=== PATIENT | female | born 1970 | race Caucasian/White ===

== ENCOUNTER 2023-07-20 15:14 | Outpatient (AMB) | payer BC, SELFPAY ==
--- NOTE | 2023-07-20 14:15 | MHC.PC.OV ---
Vital Signs 07/20/23 15:22 Height 5 ft 7.13 in Weight 200 lb 2 oz BMI 31.2 BP 118/78 Blood Pressure Location Rt brachial Position Sitting Respiration 14 Pulse 81 Pulse Source Palpation Temp 98.3 F Temp Source Oral Pulse Oximetry (%) 95 Oxygen Delivery Method Room Air Intake Visit Reasons: Establish Care transfer [facility] Intake Note: New patient visit. Manager Testing Required: No Allergies sulfamethoxazole [From Bactrim] Allergy (Mild, Verified 07/20/23 15:19) Hives trimethoprim [From Bactrim] Allergy (Mild, Verified 07/20/23 15:19) Hives Tobacco use date assessed: 07/20/23 Dental Screening Dental Screen Date: 07/20/23 Did you have a dental visit in the last 12 months?: Yes Did you have a dental problem in the last 6 months where you did not have access to dental care?: No Was dental information given to patient?: Patient has dentist HPI HPI Comments History of Present Illness Details The patient is a 53 year old female with a past medical history of anxiety, depression, seasonal affective disorder, headaches presnting for follow up BH: Depression with anxiety. On lexapro 20mg daily. Continues to have low energy, fatigue at times but overall doing ok Mammo is UTD Colonoscopy is UTD [facility] Medical History (Updated 07/20/23 @ 15:42 by Kristy Cherry MD) Obesity, Class I, BMI 30-34.9 Headache Depression Anxiety Family History (Updated 07/20/23 @ 17:04 by Annika Forde CMA) Mother HTN (hypertension) Hypercholesteremia Diabetes Cardiovascular disease Thyroid disorder Breast cancer Other Substance use Social History (Updated 07/20/23 @ 15:21 by Annika Forde CMA) Housing: House Patient Tobacco Use Status: Former Tobacco user Cigarette Packs Per Day: 0.5 Years Smoked: 3 e-Cigarette/Vaping Use: Never Used Second Hand Smoke Exposure: Yes service: Yes Current occupational status: employed 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 1. Little interest or pleasure in doing things: more than half the days 2. Feeling down, depressed, or hopeless: several days 3. Trouble falling or staying asleep, or sleeping too much: nearly every day 4. Feeling tired or having little energy: several days 5. Poor appetite or overeating: several days 6. Feeling bad about yourself - or that you are a failure or have let yourself or your family down: not at all 7. Trouble concentrating on things, such as reading the newspaper or watching television: not at all 8. Moving or speaking so slowly that other people could have noticed. Or the opposite - being so fidgety or restless that you have been moving around a lot more than usual: not at all 9. Thoughts that you would be better off or of hurting yourself in some way: not at all Total score: 8 Depression Screening Interpretation: Positive Depression Screening Done: Yes 31588 - PHQ-9 Billing: Yes Source: Developed by Drs. Bryan Miller, Elda Soriano, Reuben Salcido and colleagues, with an educational phoebe from [email or web address]. Thrive Questionnaire Date Thrive assessed: 07/20/23 I am a: Patient What is your living situation today?: I have a steady place to live Within the past 12 months, did the food you bought not last and you didn't have the money to get more?: Never true Within the past 12 months, did you worry whether your food would run out before you got money to buy more?: Never true Do you have trouble paying for medicines?: No Do you have trouble getting transportation to medical appointments?: No Do you have trouble paying your heating and electricity bill?: No Do you have trouble taking care of your child, family member or friend?: No Do you have trouble with day-to-day activities such as bathing, preparing meals, shopping, managing finances, etc.?: No Are you currently unemployed and looking for a job?: No Are you interested in more education?: No Please select the resources that you would like help with: None Currently or been in a relationship where the following occur: no concerns reported THRIVE Score: 0 AUDIT C Alcohol Use Questionnaire (AUDIT-C) 1. How often do you have a drink containing alcohol?: 2-4 times a month 2. How many drinks containing alcohol do you have on a typical day when you are drinking?: 1 or 2 3. How often do you have six or more drinks on one occasion?: Never Total Score: 2 LUISANA-7 AMB Questionnaire LUISANA-7 Date LUISANA - 7 assessed: 07/20/23 Feeling nervous, anxious, or on edge: 1 = Several days Not being able to stop or control worryin = Not at all Worrying too much about different things: 0 = Not at all Trouble relaxin = Several days Being so restless that it is hard to sit still: 1 = Several days Becoming easily annoyed or irritable: 1 = Several days Feeling afraid as if something awful might happen: 1 = Several days Total LUISANA-7 score (0-4 normal; 5-9 mild; 10-14 moderate; 15-21 severe): 5 Source: Developed by Drs. Bryan Miller, Elda Soriano, Reuben Salcido and colleagues, with an educational phoebe from [email or web address]. LUISANA-7 Assessment Billing LUISANA-7 Assessment Tool: LUISANA-7 Assessment 94226 Review of Systems Const Details: ROS CONSTITUTIONAL: Denies weight loss, fever and chills. HEENT: Denies changes in vision and hearing. RESPIRATORY: Denies SOB and cough. CV: Denies palpitations and CP GI: Denies abdominal pain, nausea, vomiting and diarrhea. : Denies dysuria and urinary frequency. MSK: Denies new myalgia and joint pain. SKIN: Denies rash and pruritus. NEUROLOGICAL: Denies headache PSYCHIATRIC: Denies recent changes in mood. Physical exam (Primary Care) Vital Signs: Last Vital Signs Temp 98.3 F 07/20/23 15:22 Pulse 81 07/20/23 15:22 Resp 14 07/20/23 15:22 BP 118/78 07/20/23 15:22 Pulse Ox 95 07/20/23 15:22 Oxygen Delivery Method Room Air 07/20/23 15:22 PHYSICAL EXAM: GENERAL: Alert and oriented x 3. NAD EYES: EOMI. Anicteric. HENT: Moist mucous membranes. No scleral icterus. No cervical lymphadenopathy. LUNGS: Clear to auscultation bilaterally. CARDIOVASCULAR: Regular rate and rhythm. No murmur. No JVD. ABDOMEN: Soft, non-tender +bs EXTREMITIES: No edema. Non-tender. SKIN: No rashes or lesions. Warm. NEUROLOGIC: No focal neurological deficits. CN II-XII grossly intact PSYCHIATRIC: Cooperative. Appropriate mood and affect BMI result Body Mass Index 31.2 Tobacco/Smoking Status: Tobacco use Status Tobacco use date assessed 07/20/23 07/20/23 15:22 Patient Tobacco Use Status Former Tobacco user 07/20/23 15:22 e-Cigarette/Vaping Use Never Used 07/20/23 15:22 Depression Screening Interpretation: Positive Currently or been in a relationship where the following occur: no concerns reported Assessment and Plan Assessment & Plan (1) Anxiety: Code(s): F41.9 - Anxiety disorder, unspecified (2) Headache: Code(s): R51.9 - Headache, unspecified (3) Depression: Code(s): F32.A - Depression, unspecified Coding Level of Care Code Est Pt Level 4 (10103) Diagnoses Anxiety F41.9 Headache R51.9 Depression F32.A Additional Codes LUISANA-7 Assessment Billing - LUISANA-7 Assessment Tool: LUISANA-7 Assessment [id number] ([id number])
[2023-07-20 15:22] VITALS: BP 118/78; PULSE 81; RESP 14; TEMP 36.8; O2SAT 95; BMI 31.2
== END 2023-07-20 16:33 | disposition home or self-care (01) ==
PROVIDERS: PCP Internal Medicine; Visit Provider Internal Medicine
DX: F41.9 Anxiety disorder, unspecified (principal); R51.9 Headache, unspecified; F32.A Depression, unspecified
CPT/HCPCS: 99214

== ENCOUNTER 2023-09-28 14:01 | Outpatient (AMB) | payer BC, SELFPAY ==
--- NOTE | 2023-09-28 14:34 | MHC.PC.OV ---
Vital Signs 09/28/23 14:37 Height 5 ft 7 in Weight 206 lb BMI 32.3 BP 102/54 L Blood Pressure Location Rt brachial Position Sitting Respiration 13 Pulse 74 Pulse Source Pulse Oximeter Pulse Oximetry (%) 99 Oxygen Delivery Method Room Air Intake Visit Reasons: Hormone/weight/joint pain Intake Note: Patient here to be assessed for hormone concerns, weight concerns, and joint pain. Accompanied by: Self / Same As Patient Allergies oxycodone [From Percocet] Allergy (Severe, Verified 09/28/23 14:43) Vomiting sulfamethoxazole [From Bactrim] Allergy (Mild, Verified 09/28/23 14:41) Hives trimethoprim [From Bactrim] Allergy (Mild, Verified 09/28/23 14:41) Hives Tobacco use date assessed: 07/20/23 Dental Screening Dental Screen Date: 07/20/23 HPI HPI Comments History of Present Illness Details The patient is a 53 year old female with a past medical history of anxiety, depression, seasonal affective disorder, headaches presenting for follow up She is plagued by recent polyarthralgia, fatigue, and weight gain. Doesn't matter how much she works out, how little she eats she has gained weight and feels slightly swollen. Denies shortness of breath, no pitting edema. No fevers or rashes. She was started on mirtazipine by sleep medicine for difficulty sleeping. BH: Depression with anxiety. Continues on lexapro 20mg daily. She has a history of bladder sling remotely. Is stated to have issues with incontinence and pressure again within the last few months Mammo is UTD Colonoscopy is UTD ROS CONSTITUTIONAL: Denies weight loss, fever and chills. HEENT: Denies changes in vision and hearing. RESPIRATORY: Denies SOB and cough. CV: Denies palpitations and CP GI: Denies abdominal pain, nausea, vomiting and diarrhea. : Denies dysuria and urinary frequency. MSK: Denies new myalgia and joint pain. SKIN: Denies rash and pruritus. NEUROLOGICAL: Denies headache PSYCHIATRIC: Denies recent changes in mood. PHYSICAL EXAM: GENERAL: Alert and oriented x 3. NAD EYES: EOMI. Anicteric. HENT: Moist mucous membranes. No scleral icterus. No cervical lymphadenopathy. LUNGS: Clear to auscultation bilaterally. CARDIOVASCULAR: Regular rate and rhythm. No murmur. No JVD. ABDOMEN: Soft, non-tender +bs EXTREMITIES: Non pitting mild edema. Non-tender. SKIN: No rashes or lesions. Warm. NEUROLOGIC: No focal neurological deficits. CN II-XII grossly intact PSYCHIATRIC: Cooperative. 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 Bryan Miller, Elda Soriano, Reuben Salcido and colleagues, with an educational phoebe from [employer]. Physical exam (Primary Care) Vital Signs: Last Vital Signs Pulse 74 09/28/23 14:37 Resp 13 09/28/23 14:37 BP 102/54 L 09/28/23 14:37 Pulse Ox 99 09/28/23 14:37 Oxygen Delivery Method Room Air 09/28/23 14:37 BMI result Body Mass Index 32.3 Tobacco/Smoking Status: Tobacco use Status Tobacco use date assessed 07/20/23 09/28/23 14:44 Patient Tobacco Use Status Former Tobacco user 09/28/23 14:44 e-Cigarette/Vaping Use Never Used 09/28/23 14:44 Thrive Assessment: Date of Thrive Assessment Date Thrive assessed 07/20/23 09/28/23 14:44 Assessment and Plan Assessment & Plan (1) Polyarthralgia: Code(s): M25.50 - Pain in unspecified joint Plan: Check labs. Could be partly due to quick weight gain (2) Weight gain: Code(s): R63.5 - Abnormal weight gain Plan: Stop mirtazipine. Check labs. Start trial trazodone (3) Insomnia: Code(s): G47.00 - Insomnia, unspecified Qualifiers: Insomnia type: primary Qualified Code(s): F51.01 - Primary insomnia Plan: see above Orders: Orders TSH reflex Free T4 () 09/28/23 F32.A - Depression, unspecified, F41.9 - Anxiety disorder, unspecified, R51.9 - Headache, unspecified Erythrocyte Sedimentation Rate 09/28/23 F32.A - Depression, unspecified, F41.9 - Anxiety disorder, unspecified, R51.9 - Headache, unspecified Comprehensive Met. Panel 09/28/23 F32.A - Depression, unspecified, F41.9 - Anxiety disorder, unspecified, R51.9 - Headache, unspecified Lyme IgG/IgM w/reflex to WB 09/28/23 F32.A - Depression, unspecified, F41.9 - Anxiety disorder, unspecified, R51.9 - Headache, unspecified Medications: New prednisone 40 mg (2 x 20 mg) PO DAILY 10 tabs 0RF 5 days Wegovy (semaglutide (weight loss)) administer weeks 1 through 4 of therapy 0.25 mg (0.5 mL) subcut QWEEK 2 mL 0RF NS E66.9 - Obesity, unspecified, R51.9 - Headache, unspecified, R63.5 - Abnormal weight gain trazodone 50 mg PO BEDTIME 90 tabs 3RF 90 days Discontinued tirzepatide (Mounjaro) Discontinued Reason: Insurance Denied 2.5 mg (0.5 mL) subcut QWEEK 4 weeks 2 mL 0RF Coding Level of Care Code Est Pt Level 4 (97459) Complex EM visit Add On G2211 Diagnoses Polyarthralgia M25.50 Weight gain R63.5 Primary insomnia F51.01 Insomnia type: primary
[2023-09-28 14:37] VITALS: BP 102/54; PULSE 74; RESP 13; O2SAT 99; BMI 32.3
== END 2023-09-28 15:18 | disposition home or self-care (01) ==
PROVIDERS: PCP Internal Medicine; Visit Provider Internal Medicine
DX: M25.50 Pain in unspecified joint (principal); R63.5 Abnormal weight gain; F51.01 Primary insomnia
CPT/HCPCS: 99214

== ENCOUNTER 2023-09-28 15:43 | Outpatient (REF) | payer BC, SELFPAY ==
[2023-09-28 19:31] LABS: Erythrocyte Sedimentation Rate 21 MM/HR (0-20)
[2023-09-28 19:52] LABS: Alanine Aminotransferase 98 U/L (0-31); Albumin Level 4.5 g/dL (3.5-5.0); Alkaline Phosphatase 107 U/L (39-117); Anion Gap 15 (12-20); Aspartate Amino Transferase 63 U/L (5-31); Bilirubin Total 0.4 mg/dL (0.0-1.0); Blood Urea Nitrogen 16 mg/dL (9-16); Calcium 10.5 mg/dL (8.4-10.2); Carbon Dioxide 25 mmol/L (22-29); Chloride 105 mmol/L (96-108); Estimated Glomerular Filt Rate > 60; Glucose Random 103 mg/dL (60-115); Potassium 4.4 mmol/L (3.3-5.1); Sodium 141 mmol/L (135-145); Total Protein 7.5 g/dL (6.5-8.0)
[2023-09-28 20:06] LABS: TSH reflex Free T4 (Prenatal) 0.89 uIU/mL (0.32-4.0)
[2023-09-30 12:49] LABS: Lyme Abs Screen <0.90 index
== END 2023-09-28 15:44 | disposition home or self-care (01) ==
LOC: HO.WFDLDS 15:43
PROVIDERS: Visit Provider Internal Medicine
DX: F41.9 Anxiety disorder, unspecified (principal); R51.9 Headache, unspecified; F32.A Depression, unspecified
CPT/HCPCS: 36415; 80053; 84443; 85652; 86617; 86618

== ENCOUNTER 2023-10-16 14:54 | Outpatient (AMB) | payer BC, SELFPAY ==
--- NOTE | 2023-10-16 14:55 | AM.OFFWIN_ITS ---
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 Intake Note: Patient here for rash that started in bikini area and has now spread to the right thigh which has been present for about 1 week Patient Tobacco Use Status: Former Tobacco user Allergies oxycodone [From Percocet] Allergy (Severe, Verified 10/16/23 14:58) Vomiting sulfamethoxazole [From Bactrim] Allergy (Mild, Verified 10/16/23 14:58) Hives trimethoprim [From Bactrim] Allergy (Mild, Verified 10/16/23 14:58) Hives Do you need a note to return to daycare/school/sports/work: No HPI HPI Comments 2 History of Present Illness0 Details 53 y/o female patient [facility]/o Rash around the Bikini region and thighs x 1 week now. Describes the rash as very itchy. She noticed the rash after she shaved her groin and pubic region. 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 Current occupational exposures/hazards: Yes Cognitive needs: No Hearing needs: No Vision needs: Yes (reading glasses ) Review of Systems Const All systems reviewed & are unremarkable except as noted in HPI and below Physical Exam Vital Signs: Last Vital Signs Pulse 82 10/16/23 14:56 BP 124/80 10/16/23 14:56 Pulse Ox 98 10/16/23 14:56 Oxygen Delivery Method Room Air 10/16/23 14:56 BMI result Body Mass Index 31.3 Const General: comfortable and no acute distress Nutritional Appearance: overweight Orientation/consciousness: patient oriented x3 Skin Rashes: rashes noted (Small pinpoint white headed pimples/rash with erythema around the edges. ) Full body images: 2 1. Small pinpoint white headed pimples/rash with erythema around the edges. 2. Small pinpoint white headed pimples/rash with erythema around the edges. Neuro General: patient oriented x3, gait normal and moves all extremities Psych Speech and movement: Normal speech and movement present Assessment & Plan Assessment & Plan (1) Rash and nonspecific skin eruption: Code(s): R21 - Rash and other nonspecific skin eruption Plan: DDx's: Folliculitis vs Dermatitis vs Fungal. May Apply OTC Hydrocortisone cream Keep area dry and clean Benadrly for itching relief. RTC after 72 hours if no improvement. Medications: New 2 cephalexin 500 mg PO BID 7 days 14 caps 0RF R21 - Rash and other nonspecific skin eruption Coding Level of Care Code New Pt Level 3 (43638) Diagnoses Rash and nonspecific skin eruption R21 Time Spent (min) 15
[2023-10-16 14:56] VITALS: BP 124/80; PULSE 82; O2SAT 98; BMI 31.3
== END 2023-10-16 15:19 | disposition home or self-care (01) ==
PROVIDERS: PCP Internal Medicine; Visit Provider Nurse Practitioner Family
DX: R21 Rash and other nonspecific skin eruption (principal)
CPT/HCPCS: 99203

== ENCOUNTER 2023-11-10 15:38 | Outpatient (AMB) | payer BC, SELFPAY ==
--- NOTE | 2023-11-10 15:54 | A.OFFPC_ITS ---
Vital Signs 11/10/23 15:55 Height 5 ft 7 in Weight 194 lb BMI 30.4 Intake Visit Reasons: Follow-up and new script after beginning Wegovy Intake Note: Patient is following up for Wegovy. Patient states the first week she was sick, the second week nausea for the first day and the third week seems much better. Patient would like the Wegovy RX to go to [facility] [place] [place] pharmacy. 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 Accompanied by: Self / Same As Patient Allergies oxycodone [From Percocet] Allergy (Severe, Verified 11/10/23 15:58) Vomiting sulfamethoxazole [From Bactrim] Allergy (Mild, Verified 11/10/23 15:58) Hives trimethoprim [From Bactrim] Allergy (Mild, Verified 11/10/23 15:58) Hives Tobacco use date assessed: 07/20/23 Dental Screening Dental Screen Date: 07/20/23 HPI HPI Comments History of Present Illness Details The patient is a 53 year old female with a past medical history of anx iety, depression, seasonal affective disorder, headaches presenting for follow up She is plagued by recent polyarthralgia, fatigue, and weight gain. Doesn't matter how much she works out, how little she eats she has gained weight and feels slightly swollen. Denies shortness of breath, no pitting edema. No fevers or rashes. She was started on mirtazipine by sleep medicine for difficulty sleeping. Stopped remeron at last visit. started wegovy. Lost 10 pounds. Less joint pain. still fatigued but not sleeping well. trazodone was not effective. BH: Depression with anxiety. Continues on lexapro 20mg daily. She has a history of bladder sling remotely. Is stated to have issues with incontinence and pressure again within the last few months Mammo is UTD Colonoscopy is UTD ROS see HPI PHYSICAL EXAM: GENERAL: Alert and oriented x 3. NAD EYES: EOMI. Anicteric. HENT: Moist mucous membranes. No scleral icterus. No cervical lymphadenopathy. LUNGS: Clear to auscultation bilaterally. CARDIOVASCULAR: Regular rate and rhythm. No murmur. No JVD. ABDOMEN: Soft, non-tender +bs EXTREMITIES: Non pitting mild edema. Non-tender. SKIN: No rashes or lesions. Warm. NEUROLOGIC: No focal neurological deficits. CN II-XII grossly intact PSYCHIATRIC: Cooperative. 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 1. Little interest or pleasure in doing things: not at all 2. Feeling down, depressed, or hopeless: not at all 3. Trouble falling or staying asleep, or sleeping too much: nearly every day 4. Feeling tired or having little energy: more than half the days 5. Poor appetite or overeating: not at all 6. Feeling bad about yourself - or that you are a failure or have let yourself or your family down: not at all 7. Trouble concentrating on things, such as reading the newspaper or watching television: not at all 8. Moving or speaking so slowly that other people could have noticed. Or the opposite - being so fidgety or restless that you have been moving around a lot more than usual: not at all 9. Thoughts that you would be better off or of hurting yourself in some way: not at all Total score: 5 Source: Developed by Drs. Bryan Miller, Elda Soriano, Reuben Salcido and colleagues, with an educational phoebe from [employer]. Thrive Questionnaire Date Thrive assessed: 07/20/23 I am a: Patient What is your living situation today?: I have a steady place to live Within the past 12 months, did the food you bought not last and you didn't have the money to get more?: Never true Within the past 12 months, did you worry whether your food would run out before you got money to buy more?: Never true Do you have trouble paying for medicines?: No Do you have trouble getting transportation to medical appointments?: No Do you have trouble paying your heating and electricity bill?: No Do you have trouble taking care of your child, family member or friend?: No Do you have trouble with day-to-day activities such as bathing, preparing meals, shopping, managing finances, etc.?: No Are you currently unemployed and looking for a job?: No Are you interested in more education?: No Please select the resources that you would like help with: None Currently or been in a relationship where the following occur: No concerns reported THRIVE Score: 0 AUDIT C Alcohol Use Questionnaire (AUDIT-C) 1. How often do you have a drink containing alcohol?: Monthly or less 2. How many drinks containing alcohol do you have on a typical day when you are drinking?: 1 or 2 3. How often do you have six or more drinks on one occasion?: Never Total Score: 1 LUISANA-7 AMB Questionnaire LUISANA-7 Date LUISANA - 7 assessed: 07/20/23 Feeling nervous, anxious, or on edge: 0 = Not at all Not being able to stop or control worryin = Not at all Worrying too much about different things: 0 = Not at all Trouble relaxin = Not at all Being so restless that it is hard to sit still: 0 = Not at all Becoming easily annoyed or irritable: 2 = More than half the days Feeling afraid as if something awful might happen: 0 = Not at all Total LUISANA-7 score (0-4 normal; 5-9 mild; 10-14 moderate; 15-21 severe): 2 Source: Developed by Drs. Bryan Miller, Elda Soriano, Reuben Salcido and colleagues, with an educational phoebe from [employer]. Physical exam (Primary Care) BMI result Body Mass Index 30.4 Tobacco/Smoking Status: Tobacco use Status Tobacco use date assessed 07/20/23 11/10/23 16:00 Patient Tobacco Use Status Former Tobacco user 11/10/23 16:00 e-Cigarette/Vaping Use Never Used 11/10/23 16:00 PHQ-9: PHQ-9 Score PHQ-9: Total score 5 11/11/23 08:35 Thrive Assessment: Date of Thrive Assessment Date Thrive assessed 07/20/23 11/10/23 16:00 Currently or been in a relationship where the following occur: No concerns reported Assessment and Plan Assessment & Plan (1) Insomnia: Code(s): G47.00 - Insomnia, unspecified Qualifiers: Insomnia type: primary Qualified Code(s): F51.01 - Primary insomnia Plan: Trial ambien as needed. (2) Polyarthralgia: Code(s): M25.50 - Pain in unspecified joint Plan: Improved since last visit. Labs fairly unremarkable. Will need to repeat LFTs (3) Obesity (BMI 30-39.9): Code(s): E66.9 - Obesity, unspecified Plan: 10 pound weight loss off remeron and with starting wegovy. Increase to 0.5 weekly Medications: New zolpidem 5 mg PO BEDTIME PRN 30 tabs 0RF insomnia Wegovy (semaglutide (weight loss)) administer weeks 5 through 8 of therapy 0.5 mg (0.5 mL) subcut QWEEK 2 mL 0RF NS Discontinued prednisone Discontinued Reason: Doctor's Order 40 mg (2 x 20 mg) PO DAILY 5 days 10 tabs 0RF trazodone Discontinued Reason: Doctor's Order 50 mg PO BEDTIME 90 days 90 tabs 3RF Wegovy (semaglutide (weight loss)) administer weeks 1 through 4 of therapy Discontinued Reason: Doctor's Order 0.25 mg (0.5 mL) subcut QWEEK 2 mL 0RF NS E66.9 - Obesity, unspecified, R51.9 - Headache, unspecified, R63.5 - Abnormal weight gain Coding Level of Care Code Est Pt Level 4 (91968) Complex EM visit Add On G2211 Diagnoses Primary insomnia F51.01 Insomnia type: primary Polyarthralgia M25.50 Obesity (BMI 30-39.9) E66.9
[2023-11-10 15:55] VITALS: BMI 30.4
== END 2023-11-10 16:22 | disposition home or self-care (01) ==
PROVIDERS: PCP Internal Medicine; Visit Provider Internal Medicine
DX: F51.01 Primary insomnia (principal); M25.50 Pain in unspecified joint; E66.9 Obesity, unspecified; Z68.30 Body mass index [BMI] 30.0-30.9, adult
CPT/HCPCS: 99214

== ENCOUNTER 2024-01-04 14:22 | Outpatient (AMB) | payer BC, SELFPAY ==
--- NOTE | 2024-01-04 14:35 | MHC.PC.OV ---
Vital Signs 01/04/24 14:36 Height 5 ft 7 in Weight 186 lb 8 oz BMI 29.2 BP 96/70 Blood Pressure Location Lt brachial Position Sitting Pulse 73 Pulse Source Pulse Oximeter Pulse Oximetry (%) 99 Oxygen Delivery Method Room Air Intake Visit Reasons: CPE Intake Note: Physical Allergies oxycodone [From Percocet] Allergy (Severe, Verified 01/04/24 14:35) Vomiting sulfamethoxazole [From Bactrim] Allergy (Mild, Verified 01/04/24 14:35) Hives trimethoprim [From Bactrim] Allergy (Mild, Verified 01/04/24 14:35) Hives Tobacco use date assessed: 07/20/23 Dental Screening Dental Screen Date: 07/20/23 HPI HPI Comments History of Present Illness Details The patient is a 53 year old female with a past medical history of anxiety, depression, seasonal affective disorder, headaches presenting for physical exam BH: Depression with anxiety. Continues on lexapro 20mg daily, buspar, zolpidem. Has tried trazodone for sleep in the past-ineffective. Stopped remeron due to fatigue, weight gain She has a history of bladder sling remotely. Had recurrent incontinence and pressure. Was referred to urogynecology. Mammo is UTD Colonoscopy is UTD ROS see HPI PHYSICAL EXAM: GENERAL: Alert and oriented x 3. NAD EYES: EOMI. Anicteric. HENT: Moist mucous membranes. No scleral icterus. No cervical lymphadenopathy. LUNGS: Clear to auscultation bilaterally. CARDIOVASCULAR: Regular rate and rhythm. No murmur. No JVD. ABDOMEN: Soft, non-tender +bs EXTREMITIES: Non pitting mild edema. Non-tender. SKIN: No rashes or lesions. Warm. NEUROLOGIC: No focal neurological deficits. CN II-XII grossly intact PSYCHIATRIC: Cooperative. 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 Current occupational exposures/hazards: Yes Cognitive needs: No Hearing needs: No Vision needs: Yes (reading glasses ) Questionnaire Thrive Questionnaire Date Thrive assessed: 11/10/23 I am a: Patient What is your living situation today?: I have a steady place to live Within the past 12 months, did the food you bought not last and you didn't have the money to get more?: Never true Within the past 12 months, did you worry whether your food would run out before you got money to buy more?: Never true Do you have trouble paying for medicines?: No Do you have trouble getting transportation to medical appointments?: No Do you have trouble paying your heating and electricity bill?: No Do you have trouble taking care of your child, family member or friend?: No Do you have trouble with day-to-day activities such as bathing, preparing meals, shopping, managing finances, etc.?: No Are you currently unemployed and looking for a job?: No Are you interested in more education?: No Please select the resources that you would like help with: None Currently or been in a relationship where the following occur: No concerns reported THRIVE Score: 0 LUISANA-7 AMB Questionnaire LUISANA-7 Date LUISANA - 7 assessed: 07/20/23 Source: Developed by Drs. Bryan Miller, Elda Soriano, Reuben Salcido and colleagues, with an educational phoebe from [employer]. Physical exam (Primary Care) Vital Signs: Last Vital Signs Pulse 73 01/04/24 14:36 BP 96/70 01/04/24 14:36 Pulse Ox 99 01/04/24 14:36 Oxygen Delivery Method Room Air 01/04/24 14:36 BMI result Body Mass Index 29.2 Tobacco/Smoking Status: Tobacco use Status Tobacco use date assessed 07/20/23 01/04/24 14:38 Patient Tobacco Use Status Former Tobacco user 01/04/24 14:38 e-Cigarette/Vaping Use Never Used 01/04/24 14:38 Thrive Assessment: Date of Thrive Assessment Date Thrive assessed 11/10/23 01/04/24 14:38 Currently or been in a relationship where the following occur: No concerns reported Coding Level of Care Code Est Pt Level 4 (82163) Diagnoses Physical exam Z00.00 Recurrent major depressive disorder, in partial remission F33.41 Active/Remission status: in partial remission Depression Type: major depressive disorder Major depression recurrence: recurrent Obesity (BMI 30-39.9) E66.9 Assessment & Plan Assessment & Plan (1) Physical exam: Code(s): Z00.00 - Encounter for general adult medical examination without abnormal findings Category: Medical Plan: Preventive measures for age discussed Screenings up to date (2) Depression: Code(s): F32.A - Depression, unspecified Category: Medical Qualifiers: Active/Remission status: in partial remission Depression Type: major depressive disorder Major depression recurrence: recurrent Qualified Code(s): F33.41 - Major depressive disorder, recurrent, in partial remission Plan: Doing well on current medication regimen (3) Obesity (BMI 30-39.9): Code(s): E66.9 - Obesity, unspecified Category: Medical Plan: congratulated on interval weight loss Orders: Orders Complete Blood Count Auto Diff 01/04/24 Z00.00 - Encounter for general adult medical examination without abnormal findings, Z13.0 - Encounter for screening for diseases of the blood and blood-forming organs and certain disorders involving the immune mechanism, R79.89 - Other specified abnormal findings of blood chemistry Comprehensive Met. Panel 01/04/24 Z00.00 - Encounter for general adult medical examination without abnormal findings, Z13.0 - Encounter for screening for diseases of the blood and blood-forming organs and certain disorders involving the immune mechanism, R79.89 - Other specified abnormal findings of blood chemistry
[2024-01-04 14:36] VITALS: BP 96/70; PULSE 73; O2SAT 99; BMI 29.2
== END 2024-01-04 15:35 | disposition home or self-care (01) ==
LOC: HO.HMCFM 14:23
PROVIDERS: PCP Internal Medicine; Visit Provider Internal Medicine
DX: Z00.00 Encounter for general adult medical examination without abnormal findings (principal); F33.41 Major depressive disorder, recurrent, in partial remission; E66.9 Obesity, unspecified; Z68.29 Body mass index [BMI] 29.0-29.9, adult

== ENCOUNTER → 2024-01-04 14:22 | Outpatient (BNVA) | payer BC, SELFPAY | PROVIDERS: PCP Internal Medicine; Visit Provider Internal Medicine ==

== ENCOUNTER 2024-01-04 15:26 | Outpatient (REF) | payer BC, SELFPAY ==
[2024-01-04 17:44] LABS: MANUAL DIFF FLAG NO
[2024-01-04 17:50] LABS: Basophils Absolute Auto 0.1 X10*3/uL (0.0-0.2); Eosinophils Absolute Auto 0.1 X10*3/uL (0.0-0.4); Eosinophils Percent Auto 2.2 % (0-4); Hematocrit 39.5 % (37.0-47.0); Hemoglobin 12.9 g/dl (12.0-16.0); Imm Gran Abs Auto 0.01 X10*3/uL (0.00-0.03); Imm Gran Pct Auto 0.2 % (0.0-0.4); Lymphocytes Absolute Auto 2.3 X10*3/uL (1.2-4.9); Lymphocytes Percent Auto 38.8 % (20-40); Mean Corpuscular HGB Conc 32.7 g/dl (31.0-35.0); Mean Corpuscular Hemoglobin 29.7 pg (27.0-33.0); Mean Platelet Volume 10.4 fL (9.4-12.3); Monocytes Absolute Auto 0.4 X10*3/uL (0.1-1.2); Monocytes Percent Auto 7.2 % (2-11); Neutrophils Percent Auto 50.6 % (45-73); Platelet Count 359 X10*3/uL (160-400); Red Blood Count 4.34 X10*6/uL (4.20-5.50); Red Cell Distribution Width 12.9 % (11.0-16.0); White Blood Count 5.9 X10*3/uL (4.8-10.8)
[2024-01-04 18:35] LABS: Alanine Aminotransferase 34 U/L (0-31); Albumin Level 4.3 g/dL (3.5-5.0); Alkaline Phosphatase 82 U/L (39-117); Anion Gap 12 (12-20); Aspartate Amino Transferase 23 U/L (5-31); Bilirubin Total 0.2 mg/dL (0.0-1.0); Blood Urea Nitrogen 17 mg/dL (9-16); Calcium 9.9 mg/dL (8.4-10.2); Carbon Dioxide 27 mmol/L (22-29); Chloride 106 mmol/L (96-108); Estimated Glomerular Filt Rate > 60; Glucose Random 106 mg/dL (60-115); Potassium 3.7 mmol/L (3.3-5.1); Sodium 141 mmol/L (135-145); Total Protein 7.5 g/dL (6.5-8.0)
== END 2024-01-04 15:27 | disposition home or self-care (01) ==
LOC: HO.WFDLDS 15:26
PROVIDERS: Visit Provider Internal Medicine
DX: Z00.00 Encounter for general adult medical examination without abnormal findings (principal); Z13.0 Encounter for screening for diseases of the blood and blood-forming organs and certain disorders involving the immune mechanism; R79.89 Other specified abnormal findings of blood chemistry
CPT/HCPCS: 36415; 80053; 85025

== ENCOUNTER → 2024-06-15 10:55 | Outpatient (BNVA) | payer OTHER, SELFPAY | PROVIDERS: PCP Internal Medicine; Visit Provider Physician Assistant Medical | DX: S46.912A Strain of unspecified muscle, fascia and tendon at shoulder and upper arm level, left arm, initial encounter (principal); X50.3XXA Overexertion from repetitive movements, initial encounter | CPT/HCPCS: 73030; 99204 ==

== ENCOUNTER → 2024-06-29 10:19 | Outpatient (BNVA) | payer OTHER, SELFPAY | PROVIDERS: PCP Internal Medicine; Visit Provider Physician Assistant | DX: S46.912A Strain of unspecified muscle, fascia and tendon at shoulder and upper arm level, left arm, initial encounter (principal); S53.402A Unspecified sprain of left elbow, initial encounter; X50.3XXA Overexertion from repetitive movements, initial encounter; Z02.79 Encounter for issue of other medical certificate | CPT/HCPCS: 99213 ==

== ENCOUNTER 2024-11-29 09:42 | Outpatient (REF) | payer OTHER, SELFPAY ==
--- OUTSIDE RECORDS SUMMARY | 2024-11-29 10:34 | XMS_ITS | Clinical Summary ---
Author Organization [facility] Address [address] [place] [id number] Phone Care Team Providers Care Cassandra Developer Name Role Phone Tori Kramer PA Unavailable [phone] Kristy Crandall MD Primary Care Provider Allergies Active Allergy Reactions Criticality Noted Date Comments Sulfamethoxazole-Trimethoprim Itching 2024 Medications diclofenac sodium (VOLTAREN) 75 MG EC tablet Take 1 tablet (75 mg total) by mouth 2 (two) times a day. 60 tablet 1 11/10/2024 Active Encounters Date Type Department Care Team Description 11/10/2024 11:00 AM EDT Office Visit [facility] [address] [place] [id number] Althea Ford MD Biceps tendonitis on left (Primary Dx) from Last 3 Months Social History Tobacco Use Types Packs/Day Years Used Date Smoking Tobacco: Never Assessed Education Answer Date Recorded Are you interested in more education? Not on bishop e 06/22/2024 Are you concerned about learning? Not on file 06/22/2024 No 06/22/2024 No 06/22/2024 Digital Access Answer Date Recorded No 06/22/2024 No 06/22/2024 Reliable internet access at home? Not on file 06/22/2024 Device with a working camera? Not on file Comments Unknown Sex and Gender Information Value Date Recorded Sex Assigned at Not on file Legal Sex Female 4:05 PM EDT Gender Identity Not on file Sexual Orientation Not on file Plan of Treatment Health Maintenance Due Date Last Done Comments LIPID PANEL 1970 DEPRESSION SCREENING 1982 SMOKING Hx and SMOKELESS TOBACCO SCREENING 05/09/1983 HEPATITIS C SCREENING 1988 HIV ONE-TIME SCREENING (18-65 YEARS) 1988 PAP SMEAR 05/09/1991 MAMMOGRAM 2010 COLOGUARD 05/09/2015 COLONOSCOPY 05/09/2015 COLORECTAL CANCER SCREENING 05/09/2015 FIT TEST 05/09/2015 FOBT 05/09/2015 SIGMOIDOSCOPY 05/09/2015 VIRTUAL COLONOSCOPY 05/09/2015 PNEUMOCOCCAL VACCINES (50+ years) (1 of 1 - PCV) 2020 INFLUENZA VACCINE (#1) 2024 , 12/14/2019, 12/08/2018, Additional history exists COVID-19 VACCINE ( season) 2024 01/30/2021, 04/11/2020, 03/14/2020 Adult Td,Tdap Booster 11/14/2024 11/14/2014 ZOSTER VACCINES Completed 03/22/2021, 12/31/2020 HEPATITIS A VACCINES Aged Out No long er eligible based on patient's age to complete this topic HIB VACCINES Aged Out No longer eligi ble based on patient's age to complete this topic MENINGOCOCCAL VACCINES (ACWY) Aged Out No longer eligible based on patient's age to complete this topic MENINGOCOCCAL VACCINES (B) Aged Out N o longer eligible based on patient's age to complete this topic Medical Devices Not on file Insurance [place] [address] [place] [address] [place] [address] [place] [address] [facility] [place] [id number] Care Teams Cassandra Developer Relationship Specialty Start Date End Date Kristy Crandall MD [address] [place] [id number] PCP - General Internal Medicine 10/27/24 Tori Kramer PA [address] [place] [id number] Physician Coordinate Measuring Machine Operator 06/22/24 Additional Source Comments The information contained in this document represents components of the legal health record. It is not the complete legal health record.[facility]
--- OUTSIDE RECORDS SUMMARY | 2024-11-29 10:34 | XMS_ITS ---
Author Name [facility] Organization Unknown Care Team Organization Name Specialty Phone Email Start Date End Da simona [facility] Termed, PROVIDER Primary Care 01/07/202209/30
[2024-11-29 11:38] LABS: MANUAL DIFF FLAG NO
[2024-11-29 11:58] LABS: Hematocrit 41.1 % (37.0-47.0); Hemoglobin 13.3 g/dl (12.0-16.0); Imm Gran Abs Auto 0.01 X10*3/uL (0.00-0.03); Imm Gran Pct Auto 0.2 % (0.0-0.4); Lymphocytes Absolute Auto 1.6 X10*3/uL (1.2-4.9); Mean Corpuscular HGB Conc 32.4 g/dl (31.0-35.0); Mean Corpuscular Hemoglobin 29.4 pg (27.0-33.0); Mean Corpuscular Volume 90.7 fL (80.0-98.0); NRBC Abs Auto 0.000 X10*3/uL (0.0-0.012); NRBC Pct Auto 0.0 /100WBC (0.0-0.2); Platelet Count 308 X10*3/uL (160-400); Red Blood Count 4.53 X10*6/uL (4.20-5.50); White Blood Count 4.7 X10*3/uL (4.8-10.8)
[2024-11-29 12:03] LABS: Alanine Aminotransferase 54 U/L (0-31); Albumin Level 4.6 g/dL (3.5-5.0); Alkaline Phosphatase 106 U/L (39-117); Anion Gap 10 (12-20); Aspartate Amino Transferase 29 U/L (5-31); Blood Urea Nitrogen 15 mg/dL (9-16); Calcium 10.3 mg/dL (8.4-10.2); Carbon Dioxide 29 mmol/L (22-29); Chloride 107 mmol/L (96-108); Cholesterol 269 mg/dL (<200); Estimated Glomerular Filt Rate > 60; HDL Cholesterol 57 mg/dL (>40); Potassium 4.2 mmol/L (3.3-5.1); Sodium 142 mmol/L (135-145); Total Protein 7.4 g/dL (6.5-8.0); Triglycerides 209 mg/dL (<150)
[2024-11-29 12:20] LABS: Hemoglobin A1C 137.0665 umol/L
[2024-12-05 14:17] LABS: Vitamin D 25-OH, D2 <4 ng/mL; Vitamin D 25-OH, D3 34 ng/mL; Vitamin D 25-OH, Total 34 ng/mL (30-100)
== END 2024-11-29 09:43 | disposition home or self-care (01) ==
LOC: HO.WFDLDS 09:42
PROVIDERS: Visit Provider Internal Medicine
DX: Z13.0 Encounter for screening for diseases of the blood and blood-forming organs and certain disorders involving the immune mechanism (principal); R35.89 Other polyuria; F41.9 Anxiety disorder, unspecified; F33.41 Major depressive disorder, recurrent, in partial remission; R79.89 Other specified abnormal findings of blood chemistry; M25.50 Pain in unspecified joint; Z13.21 Encounter for screening for nutritional disorder
CPT/HCPCS: 36415; 80053; 80061; 82306; 83036; 84443; 85025

== ENCOUNTER 2025-01-02 13:46 | Outpatient (AMB) | payer OTHER, SELFPAY ==
[2025-01-02 13:52] VITALS: BP 100/74; PULSE 64; RESP 14; O2SAT 99; BMI 31.9
--- NOTE | 2025-01-02 13:52 | MHC.PC.OV ---
Vital Signs 01/02/25 13:52 Height 5 ft 7 in Weight 204 lb BMI 31.9 BP 100/74 Blood Pressure Location Rt brachial Position Sitting Respiration 14 Pulse 64 Pulse Source Pulse Oximeter Pulse Oximetry (%) 99 Oxygen Delivery Method Room Air Intake Visit Reasons: right shoulder pain, resched Intake Note: Right shoulder pain. Discuss hormone medication. Fund Manager Required: No Allergies oxycodone (From Percocet) Allergy (Severe, Verified 01/02/25 13:55) Vomiting sulfamethoxazole (From Bactrim) Allergy (Mild, Verified 01/02/25 13:55) Hives trimethoprim (From Bactrim) Allergy (Mild, Verified 01/02/25 13:55) Hives Tobacco use date assessed: 07/20/23 Dental Screening Dental Screen Date: 01/02/25 Did you have a dental visit in the last 12 months?: Yes Did you have a dental problem in the last 6 months where you did not have access to dental care?: No Was dental information given to patient?: Patient has dentist HPI HPI Comments History of Present Illness Details The patient is a 54 year old female with a past medical history of anxiety, depression, seasonal affective disorder, headaches presenting for physical exam Right shoulder pain for the past month. Has persistent pain even at rest but much increased pain with movement especially when she move the arm behind the back of lifts over the shoulder. She has been having more frequent joint and muscle pain. She was having left elbow pain for a couple weeks that eventually lessened in severity. BH: Depression with anxiety. Continues on lexapro 20mg daily, buspar, zolpidem. Has tried trazodone for sleep in the past-ineffective. Stopped remeron due to fatigue, weight gain. Follows with a counselor. Is planning to retire. She is overly stressed. She feels increasingly [place]. She is frustrated by weight gain. She is active and eating healthy. She is bothered by fatigue, moodiness and some night sweats. She would like to consider HRT. She has a history of bladder sling remotely. Had recurrent incontinence and pressure. Was referred to urogynecology. Mammo is UTD Colonoscopy is UTD ROS see HPI PHYSICAL EXAM: GENERAL: Alert and oriented x 3. NAD EYES: EOMI. Anicteric. HENT: Moist mucous membranes. No scleral icterus. No cervical lymphadenopathy. LUNGS: Clear to auscultation bilaterally. CARDIOVASCULAR: Regular rate and rhythm. No murmur. No JVD. MSK: Right shoulder normal to inspection. ROM limited by pain. Non tender to palpation ABDOMEN: Soft, non-tender +bs EXTREMITIES: Non pitting mild edema. Non-tender. SKIN: No rashes or lesions. Warm. NEUROLOGIC: No focal neurological deficits. CN II-XII grossly intact PSYCHIATRIC: Cooperative. 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 1. Little interest or pleasure in doing things: not at all 2. Feeling down, depressed, or hopeless: not at all 3. Trouble falling or staying asleep, or sleeping too much: several days 4. Feeling tired or having little energy: not at all 5. Poor appetite or overeating: not at all 6. Feeling bad about yourself - or that you are a failure or have let yourself or your family down: not at all 7. Trouble concentrating on things, such as reading the newspaper or watching television: not at all 8. Moving or speaking so slowly that other people could have noticed. Or the opposite - being so fidgety or restless that you have been moving around a lot more than usual: not at all 9. Thoughts that you would be better off or of hurting yourself in some way: not at all Total score: 1 Depression Screening Interpretation: Negative Depression Screening Done: Yes 21950 - PHQ-9 Billing: Yes Source: Developed by Drs. Bryan Miller, Elda Soriano, Reuben Salcido and colleagues, with an educational phoebe from [employer]. Thrive Questionnaire Date Thrive assessed: 01/02/25 I am a: Patient What is your living situation today?: I have a steady place to live Within the past 12 months, did the food you bought not last and you didn't have the money to get more?: Never true Within the past 12 months, did you worry whether your food would run out before you got money to buy more?: Never true Do you have trouble paying for medicines?: No Do you have trouble getting transportation to medical appointments?: No Do you have trouble paying your heating and electricity bill?: No Do you have trouble taking care of your child, family member or friend?: No Do you have trouble with day-to-day activities such as bathing, preparing meals, shopping, managing finances, etc.?: No Are you currently unemployed and looking for a job?: No Are you interested in more education?: No Please select the resources that you would like help with: None Currently or been in a relationship where the following occur: No concerns reported THRIVE Score: 0 AUDIT C Alcohol Use Questionnaire (AUDIT-C) 1. How often do you have a drink containing alcohol?: 2-3 times a week 2. How many drinks containing alcohol do you have on a typical day when you are drinking?: 1 or 2 3. How often do you have six or more drinks on one occasion?: Never Total Score: 3 LUISANA-7 AMB Questionnaire LUISANA-7 Date LUISANA - 7 assessed: 07/20/23 Feeling nervous, anxious, or on edge: 1 = Several days Not being able to stop or control worryin = Several days Worrying too much about different things: 1 = Several days Trouble relaxin = Several days Being so restless that it is hard to sit still: 1 = Several days Becoming easily annoyed or irritable: 2 = More than half the days Feeling afraid as if something awful might happen: 0 = Not at all Total LUISANA-7 score (0-4 normal; 5-9 mild; 10-14 moderate; 15-21 severe): 7 Source: Developed by Drs. Bryan Miller, Elda Soriano, Reuben Salcido and colleagues, with an educational phoebe from [employer]. Physical exam (Primary Care) Vital Signs: Last Vital Signs Pulse 64 01/02/25 13:52 Resp 14 01/02/25 13:52 BP 100/74 01/02/25 13:52 Pulse Ox 99 01/02/25 13:52 Oxygen Delivery Method Room Air 01/02/25 13:52 BMI result Body Mass Index 31.9 Tobacco/Smoking Status: Tobacco use Status Tobacco use date assessed 07/20/23 01/02/25 13:59 Patient Tobacco Use Status Former Tobacco user 01/02/25 13:59 e-Cigarette/Vaping Use Never Used 01/02/25 13:59 Depression Screening Interpretation: Negative Thrive Assessment: Date of Thrive Assessment Date Thrive assessed 01/02/25 01/02/25 13:59 Currently or been in a relationship where the following occur: No concerns reported Coding Level of Care Code Est Pt Level 4 (73289) Complex EM visit Add On G2211 Diagnoses Acute pain of right shoulder M25.511 Chronicity: acute Weight gain R63.5 Recurrent major depressive disorder, in partial remission F33.41 Depression Type: major depressive disorder Major depression recurrence: recurrent Active/Remission status: in partial remission Additional Codes PHQ-9 - 72177 - PHQ-9 Billing: Yes ([id number]) Assessment & Plan Assessment & Plan (1) Right shoulder pain: Code(s): M25.511 - Pain in right shoulder Category: Medical Qualifiers: Chronicity: acute Qualified Code(s): M25.511 - Pain in right shoulder (2) Weight gain: Code(s): R63.5 - Abnormal weight gain Category: Medical (3) Depression: Code(s): F32.A - Depression, unspecified Category: Medical Qualifiers: Depression Type: major depressive disorder Major depression recurrence: recurrent Active/Remission status: in partial remission Qualified Code(s): F33.41 - Major depressive disorder, recurrent, in partial remission Plan 54 year old presenting for subacute right shoulder pain without injury Likely bursitis, arthritis. trial prednsione, meloxicam Referral to orthopedics Depression, weight gain, transition off lexapro. Start wellbutrin Trial HRT patches. Discussed potential negative side effects. Orders: Orders Lyme IgG/IgM w/reflex to WB Today M25.50 - Pain in unspecified joint XR shoulder RT min 2V Today M25.511 - Pain in right shoulder Erythrocyte Sedimentation Rate Today M25.50 - Pain in unspecified joint, M25.511 - Pain in right shoulder C Reactive Protein Today F33.41 - Major depressive disorder, recurrent, in partial remission, R63.5 - Abnormal weight gain Referrals Orthopedics Referral M25.511 - Pain in right shoulder Medications: New prednisone 40 mg (2 x 20 mg) PO DAILY 10 tabs 0RF meloxicam 15 mg PO DAILY 90 tabs 3RF bupropion HCl XL (Wellbutrin XL) Take one tablet once daily for 7 days then increase to 300mg oral daily 150 mg PO QAM 7 tabs 0RF bupropion HCl XL (Wellbutrin XL) 300 mg PO DAILY 90 tabs 3RF CombiPatch 0.05-0.14 mg/24 hr (estradiol-norethindrone acet) apply 1 patch every 3 days alternating with 1 patch every 4 days 1 patch transdermal 2XW 8 ea 3RF NS Discontinued escitalopram oxalate Discontinued Reason: Doctor's Order 20 mg PO DAILY 90 tabs 3RF
== END 2025-01-02 14:25 | disposition home or self-care (01) ==
LOC: HO.HMCFM 13:47
PROVIDERS: PCP Internal Medicine; Visit Provider Internal Medicine
DX: M25.511 Pain in right shoulder (principal); R63.5 Abnormal weight gain; F33.41 Major depressive disorder, recurrent, in partial remission

== ENCOUNTER → 2025-01-02 13:46 | Outpatient (BNVA) | payer OTHER, SELFPAY | PROVIDERS: PCP Internal Medicine; Visit Provider Internal Medicine | DX: M25.511 Pain in right shoulder (principal); R63.5 Abnormal weight gain; Z68.31 Body mass index [BMI] 31.0-31.9, adult; F33.41 Major depressive disorder, recurrent, in partial remission; F41.9 Anxiety disorder, unspecified; Z79.899 Other long term (current) drug therapy; Z13.31 Encounter for screening for depression | CPT/HCPCS: 96127; 99212 ==

== ENCOUNTER 2025-01-25 12:44 | Outpatient (AMB) | payer BC, SELFPAY ==
--- NOTE | 2025-01-25 12:47 | AM.OFFWIN_ITS ---
Intake Vital Signs 01/25/25 12:50 Height 5 ft Weight 200 lb 6 oz BMI 39.1 BP 118/68 Blood Pressure Location Lt brachial Position Sitting Respiration 12 Pulse 95 Pulse Source Pulse Oximeter Temp 97.3 F Temp Source Oral Pulse Oximetry (%) 99 Oxygen Delivery Method Room Air Intake Visit Reasons: rash Intake Note: Patient c/o rash all over since last Thursday Patient Tobacco Use Status: Former Tobacco user Continuous Wave Operator Required: No Allergies oxycodone (From Percocet) Allergy (Severe, Verified 01/25/25 12:47) Vomiting sulfamethoxazole (From Bactrim) Allergy (Mild, Verified 01/25/25 12:47) Hives trimethoprim (From Bactrim) Allergy (Mild, Verified 01/25/25 12:47) Hives Do you need a note to return to daycare/school/sports/work: No PFSH Medical History Obesity, Class I, BMI 30-34.9 Headache Depression Anxiety Family History Mother HTN (hypertension) Hypercholesteremia Diabetes Cardiovascular disease Thyroid disorder Breast cancer Other Substance use Social History Housing: House Patient Tobacco Use Status: Former Tobacco user Cigarette Packs Per Day: 0.5 Years Smoked: 3 e-Cigarette/Vaping Use: Never Used Second Hand Smoke Exposure: Yes service: Yes Current occupational status: employed 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
[2025-01-25 12:50] VITALS: BP 118/68; PULSE 95; RESP 12; TEMP 36.3; O2SAT 99; BMI 39.1
--- NOTE | 2025-01-25 13:10 | A.OFFPC_ITS ---
Vital Signs 3 01/25/25 12:50 Height 5 ft Weight 200 lb 6 oz BMI 39.1 BP 118/68 Blood Pressure Location Lt brachial Position Sitting Respiration 12 Pulse 95 Pulse Source Pulse Oximeter Temp 97.3 F Temp Source Oral Pulse Oximetry (%) 99 Oxygen Delivery Method Room Air Intake Visit Reasons: rash Allergies oxycodone (From Percocet) Allergy (Severe, Verified 01/25/25 13:00) Vomiting sulfamethoxazole (From Bactrim) Allergy (Mild, Verified 01/25/25 13:00) Hives trimethoprim (From Bactrim) Allergy (Mild, Verified 01/25/25 13:00) Hives Medication List - Last Reconciled 01/25/25 by Lorie Pinon, ELECTRIFICATION ADVISER- bupropion HCl XL (Wellbutrin XL) 150 mg PO QAM bupropion HCl XL (Wellbutrin XL) 300 mg PO DAILY buspirone 7.5 mg PO BID CombiPatch 0.05-0.14 mg/24 hr (estradiol-norethindrone acet) 1 patch transdermal 2XW NS meloxicam 15 mg PO DAILY prednisone 40 mg (2 x 20 mg) PO DAILY Tobacco use date assessed: 07/20/23 Dental Screening Dental Screen Date: 01/02/25 HPI HPI Comments 2 History of Present Illness0 Details The patient is a 54 year old female with a past medical history of anxiety, depression, seasonal affective disorder, headaches presenting with a rash. Urticaria: - The patient has a history of a similar rash since the age of 7, but has not experienced it in 25 years. - The cause of the rash was never determ ined, and previous allergy testing was negative. 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 - The current episode began on Thursday generalized itching, affecting the entire body, including the soles of the feet, mouth, lips, and eyelids. - There have been no new exposures to fo ods, laundry detergents, or soaps, and no one else in the household has a similar rash. - The patient has been taking Benadryl, which provides minimal relief from the itching. - The patient also tried cold showers an d [id number]-mim-xrmowgw cortisone cream. - The patient reports swelling of the ro of of the mouth and lip but denies any difficulty breathing. - In the past, the welts have been so la rge that they formed blisters resembling hazel. Past Medical History - History of recurrent rash since age 7, with the last episode occurring 25 years ago. - Previous severe urticaria episode in [place] required treatment with epinephrine injections. - Negative allergy testing in the past. - Past use of prednisone, which was tole rated well. Review of Systems - Integumentary: Reports generalized, pr uritic rash starting on Thursday. - HEENT: Reports itching of eyelids, jonathon th, lips, and a sensation of swelling in the roof of the mouth and lips. - Respiratory: Denies difficulty breathi ng. - Musculoskeletal: No known issues to re port. Physical Exam Urticarial rash noted to full body to include face, palms and soles of feet She does have a blister like todd on the roof of her mouth and mild edema of her upper lip She has no airway compromise Medical Decision Making The patient is a 54-year-old individual presenting with an acute, generalized, and severely pruritic rash, consistent with a flare of chronic idiopathic urticaria. The history is notable for onset in childhood, a 25-year period of remission, and a previous severe episode requiring epinephrine injections. The patient reports associated oral symptoms, including swelling of the lip and roof of the mouth, but denies dyspnea. Given the severity and widespread nature of the symptoms, an aggressive, multi- modal treatment approach is warranted to control the acute flare. This includes a systemic corticosteroid (prednisone taper), high-dose H1-dorys (cetirizine), an H2-dorys (famotidine) for adjunctive histamine blockade, and an as-needed anti-pruritic (hydroxyzine). An EpiPen is prescribed for emergency use due to the patient's history of severe reactions and current oral symptoms, which indicates a risk of progression to airway compromise. An urgent referral to an restoration technician is critical for further investigation and long-term management, as the etiology remains unknown despite a remote history of negative allergy testing. Plan 1. Urticaria - Prescribed famotidine (Pepcid) to be t aken once daily at bedtime for 30 days. - Prescribed high-dose cetirizine (Zyrte c), two tablets twice per day, for two weeks. - Prescribed a 10-day prednisone taper, to be taken with food in the morning. - Prescribed hydroxyzine to be taken up to three times a day as needed for itching. - Prescribed an EpiPen for emergency use in case of airway compromise, with instructions to call 911 after administration. - An urgent referral will be placed to [facility] for specialist evaluation. - Recommended taking daily photos of the rash to document its progression for the it support specialist. - Advised scheduling a close follow-up w ith Dr. Cherry if the rash recurs before the specialist appointment. - Endorsed the use of cold showers for s ymptomatic relief. Patient Instructions - Take famotidine (Pepcid) once a day at bedtime for 30 days. - Take two tablets of cetirizine (Zyrtec ) twice a day, once in the morning and once at night, for two weeks. - Take the prednisone medication exactly as instructed on the bottle for its 10- day course. It is best to take it in the morning with food. - You may take hydroxyzine up to three t imes a day as needed for itching. - An EpiPen has been prescribed for kb gencies. If you experience throat swelling or have trouble breathing, use the EpiPen and call 911 immediately. - A referral has been sent to an customer program specialist. Please call [facility] to schedule an urgent appointment. - I recommend you take pictures of the r hardik each day to show the it support specialist. - Please schedule a follow-up visit with Dr. Cherry if the rash starts to come back before your appointment with the it support specialist. - Continuing to take cold showers may he lp relieve the itching. Consent Verbal consent was obtained from the patient to take a picture of the rash on the back for documentation purposes. Patient was informed and verbally consented to the use of an ambient scribe for clinic note documentation during this visit. 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 3. Trouble falling or staying asleep, or sleeping too much: several days Source: Developed by Drs. Bryan Miller, Reuben Persaud and colleagues, with an educational phoebe from [employer]. Thrive Questionnaire Date Thrive assessed: 01/02/25 I am a: Patient What is your living situation today?: I have a steady place to live Within the past 12 months, did the food you bought not last and you didn't have the money to get more?: Never true Within the past 12 months, did you worry whether your food would run out before you got money to buy more?: Never true Do you have trouble paying for medicines?: No Do you have trouble getting transportation to medical appointments?: No Do you have trouble paying your heating and electricity bill?: No Do you have trouble taking care of your child, family member or friend?: No Do you have trouble with day-to-day activities such as bathing, preparing meals, shopping, managing finances, etc.?: No Are you currently unemployed and looking for a job?: No Are you interested in more education?: No Please select the resources that you would like help with: None Currently or been in a relationship where the following occur: No concerns reported THRIVE Score: 0 LUISANA-7 AMB Questionnaire LUISANA-7 Date LUISANA - 7 assessed: 07/20/23 Source: Developed by Drs. Bryan Miller, Elda Soriano, Reuben Salcido and colleagues, with an educational phoebe from [employer]. Physical exam (Primary Care) Vital Signs: Last Vital Signs Temp 97.3 F 01/25/25 12:50 Pulse 95 01/25/25 12:50 Resp 12 01/25/25 12:50 BP 118/68 01/25/25 12:50 Pulse Ox 99 01/25/25 12:50 Oxygen Delivery Method Room Air 01/25/25 12:50 BMI result Body Mass Index 39.1 Tobacco/Smoking Status: Tobacco use Status Tobacco use date assessed 07/20/23 01/02/25 13:59 Patient Tobacco Use Status Former Tobacco user 01/02/25 13:59 e-Cigarette/Vaping Use Never Used 01/02/25 13:59 Thrive Assessment: Date of Thrive Assessment Date Thrive assessed 01/02/25 01/02/25 13:59 Currently or been in a relationship where the following occur: No concerns reported Coding Level of Care Code Est Pt Level 4 (52227) Complex visit Add On G2211 Diagnoses Urticaria L50.9 Assessment & Plan Assessment & Plan (1) Urticaria: Code(s): L50.9 - Urticaria, unspecified Category: Medical Plan . Orders: Referrals 2 Allergy & Immunology Referral L50.9 - Urticaria, unspecified Medications: New 2 famotidine (Pepcid) 40 mg PO BEDTIME 30 tabs 0RF prednisone 5 tabs x 2 days, 4 tabs x 2 days, 3 tabs x 2 days, 2 tabs x 2 days, 1 tab x 2 days and then STOP. 10 mg PO DIRECTED 30 tabs 0RF 10 days epinephrine (EpiPen 2-Nathaniel) for 2 doses 0.3 mg (0.3 mL) IM Q10M PRN 2 ea 1RF anaphylaxis cetirizine (Zyrtec) 20 mg (2 x 10 mg) PO BID 56 tabs 1RF 14 days hydroxyzine HCl 50 mg PO TID PRN 30 tabs 0RF itching Discontinued 2 prednisone Discontinued Reason: Patient Completed Course 40 mg (2 x 20 mg) PO DAILY 10 tabs 0RF
--- OUTSIDE RECORDS SUMMARY | 2025-01-25 15:45 | XMS_ITS | Data Portability ---
Author Organization [place] - [facility], Allergy Address [address] [place] [id number] Care Team Providers Care [employer] Mate Name Role Phone RogerKYLE JOAQUIN Primary Care Provider [phone] Assessment Encounter Date Assessment Date Assessment LastModified by Organization Details LastModified Time 07/31/2023 07/31/2023 Patient with difficulty sleeping without clear history of apnea. She was recently given mirtazapine and that made things difficult for her to wake up. She has had a couple years of burning tongue without oral lesions. We will check CBC with differential, B12 and some other labs. She should have a sleep study. [email or web address] Not available 07/31/2023 09:56:29 Plan of Treatment Reminders Order Date Submit Date Provider Last Modified By Organization Details Last Modified Time Details Appointments None recorded. Lab ESR (erythrocyt e sedimentati on rate), blood 2023 LEROY [facility] (Centralized Electronic Ordering - All Locations), Patient Can Go To The Location Of Their Choice, [id number] 4 00:09:22 sjogren antibody panel (ssa, ssb, ro, la), serum 2023 024 [facility] (Centralized Electronic Ordering - All Locations), Patient Can Go To The Location Of Their Choice, 4 00:09:22 CBC w/ auto diff 2023 024 [facility] (Centralized Electronic Ordering - All Locations), Patient Can Go To The Location Of Their Choice, [id number] 4 00:09:20 vitamin B12 + folate, serum or blood 2023 024 [facility] (Centralized Electronic Ordering - All Locations), Patient Can Go To The Location Of Their Choice, [id number] 4 00:09:21 ferritin, serum or plasma 2023 [facility] (Centralized Electronic Ordering - All Locations), Patient Can Go To The Location Of Their Choice, [id number] 4 00:09:23 CMP, serum or plasma 2023 024 [facility] (Centralized Electronic Ordering - All Locations), Patient Can Go To The Location Of Their Choice, [id number] 4 00:09:21 Referral None recorded. Procedures polysomnogr aphy, diagnostic (PROC) 2023 [place] [address] [facility], [address] [place] [address], [address], 4 14:37:21 Surgeries None recorded. Imaging None recorded. Medication Orders None recorded. Patient TargetsNo targets recorded. Patient InstructionsNo instructions recorded. Reason for Referral None Reported. Results Created Date Observation Date Name Description Value Unit Range Abnormal Flag Note LastModifiedBy Organization Detail LastModifiedTime 07/31/1908/01/2023 CBC WITH DIFFE RENTI AL/PL ATELE T WBC 5.6 x10e3 /uL 3.4-10 .8 Not Available [facility] ([facility]) [address] [place], [address], 08/01/2023 00:09:20 07/31/1908/01/2023 CBC WITH DIFFE RENTI AL/PL ATELE T RBC 4.81 x10e6 /uL 3.77-5 .28 Not Available [facility] ([facility]) [address] [place], [address], 08/01/2023 00:09:20 07/31/1908/01/2023 CBC WITH DIFFE RENTI AL/PL ATELE T hemoglobin 13.8 g/dL 11.1-1 5.9 Not Available [facility] ([facility]) [address] [place], [address], 08/01/2023 00:09:20 07/31/19 24 08/01/2023 CBC WITH DIFFE RENTI AL/PL ATELE T hematocrit 44.9 % 34.0-4 6.6 Not Available [facility] ([facility]) [address] [facility], [place], [address], 08/01/2023 00:09:20 07/31/1908/01/2023 CBC WITH DIFFE RENTI AL/PL ATELE T MCV 93 fL 79-97 Not Available [facility] ([facility]) [address] [facility], [place], [address], 08/01/2023 00:09:20 07/31/1908/01/2023 CBC WITH DIFFE RENTI AL/PL ATELE T MCH 28.7 pg 26.6-3 3.0 Not Available [facility] ([facility]) [address] [facility], [place], [address], 08/01/2023 00:09:20 07/31/1908/01/2023 CBC WITH DIFFE RENTI AL/PL ATELE T MCHC 30.7 g/dL 31.5-3 5.7 below low normal Not Available [facility] ([facility]) [address] [place], [address], 08/01/2023 00:09:20 07/31/1908/01/2023 CBC WITH DIFFE RENTI AL/PL ATELE T RDW 13.1 % 11.7-1 5.4 Not Available [facility] ([facility]) [address] [place], [address], 08/01/2023 00:09:20 07/31/1908/01/2023 CBC WITH DIFFE RENTI AL/PL ATELE T platelets 324 x10e3 /uL 150-45 0 Not Available [facility] ([facility]) [address] [place], [address], 08/01/2023 00:09:20 07/31/19 24 08/01/2023 CBC WITH DIFFE RENTI AL/PL ATELE T neutrophils 60 % not estab. Not Available [facility] ([facility]) [address] [facility], [place], [address], 08/01/2023 00:09:20 07/31/19 24 08/01/2023 CBC WITH DIFFE RENTI AL/PL ATELE T lymphs 30 % not estab. Not Available [facility] ([facility]) [address] [facility], [place], [address], 08/01/2023 00:09:20 07/31/19 24 08/01/2023 CBC WITH DIFFE RENTI AL/PL ATELE T monocytes 7 % not estab. Not Available [facility] ([facility]) [address] [place], [address], 08/01/2023 00:09:20 07/31/19 24 08/01/2023 CBC WITH DIFFE RENTI AL/PL ATELE T eos 2 % not estab. Not Available [facility] ([facility]) [address] [place], [address], 08/01/2023 00:09:20 07/31/19 24 08/01/2023 CBC WITH DIFFE RENTI AL/PL ATELE T basos 1 % not estab. Not Available [facility] ([facility]) [address] [place], [address], 08/01/2023 00:09:20 07/31/19 24 08/01/2023 CBC WITH DIFFE RENTI AL/PL ATELE T immature cells PRINCIPAL ACCOUNT CLERK Not Available [facility] ([facility]) [address] [place], [address], 08/01/2023 00:09:20 07/31/19 24 08/01/2023 CBC WITH DIFFE RENTI AL/PL ATELE T neutrophils (absolute) 3.3 x10e3 /uL 1.4-7. 0 Not Available [facility] ([place] [facility]) [address] [facility], [place], [address], 08/01/2023 00:09:20 07/31/19 24 08/01/2023 CBC WITH DIFFE RENTI AL/PL ATELE T lymphs (absolute) 1.6 x10e3 /uL 0.7-3. 1 Not Available [facility] ([facility]) [address] [facility], [place], [address], 08/01/2023 00:09:20 07/31/19 24 08/01/2023 CBC WITH DIFFE RENTI AL/PL ATELE T monocytes(ab solute) 0.4 x10e3 /uL 0.1-0. 9 Not Available [facility] ([facility]) [address] [facility], [place], [address], 08/01/2023 00:09:20 07/31/19 24 08/01/2023 CBC WITH DIFFE RENTI AL/PL ATELE T eos (absolute) 0.1 x10e3 /uL 0.0-0. 4 Not Available [facility] ([facility]) [address] [facility], [place], [address], 08/01/2023 00:09:20 07/31/19 24 08/01/2023 CBC WITH DIFFE RENTI AL/PL ATELE T baso (absolute) 0.1 x10e3 /uL 0.0-0. 2 Not Available [facility] ([facility]) [address] [place], [address], 08/01/2023 00:09:20 07/31/19 24 08/01/2023 CBC WITH DIFFE RENTI AL/PL ATELE T immature granulocytes 0 % not estab. Not Available [facility] ([facility]) [address] [place], [address], 08/01/2023 00:09:20 07/31/19 24 08/01/2023 CBC WITH DIFFE RENTI AL/PL ATELE T immature grans (abs) 0.0 x10e3 /uL 0.0-0. 1 Not Available [facility] ([facility]) [address] [facility], [place], [address], 08/01/2023 00:09:20 07/31/19 24 08/01/2023 CBC WITH DIFFE RENTI AL/PL ATELE T NRBC PRINCIPAL ACCOUNT CLERK Not Available [facility] ([facility]) [address] [facility], [place], [address], 08/01/2023 00:09:20 07/31/19 24 08/01/2023 CBC WITH DIFFE RENTI AL/PL ATELE T hematology comments: PRINCIPAL ACCOUNT CLERK Not Available [facility] ([facility]) [address] [facility], [place], [address], 08/01/2023 00:09:20 07/31/19 24 07/31/2023 COMP. METAB OLIC PANEL (14) glucose 88 mg/dL 70-99 Not Available [facility] ([facility]) [address] [facility], [place], [address], 08/01/2023 00:09:21 07/31/19 24 07/31/2023 COMP. METAB OLIC PANEL (14) BUN 17 mg/dL 6-24 Not Available [facility] ([facility]) [address] [facility], [place], [address], 08/01/2023 00:09:21 07/31/19 24 07/31/2023 COMP. METAB OLIC PANEL (14) creatinine 0.91 mg/dL 0.57-1 .00 Not Available [facility] ([facility]) [address] [facility], [place], [address], 08/01/2023 00:09:21 07/31/19 24 07/31/2023 COMP. METAB OLIC PANEL (14) eGFR 75 mL/mi n/1.7 3 >59 Not Available [facility] ([facility]) [address], [place], [address], 08/01/2023 00:09:21 07/31/19 24 07/31/2023 COMP. METAB OLIC PANEL (14) BUN/creatini ne ratio 19 9-23 Not Available [facility] ([facility]) [address] [facility], [place], [address], 08/01/2023 00:09:21 07/31/19 24 07/31/2023 COMP. METAB OLIC PANEL (14) sodium 142 mmol/ L 134-14 4 Not Available [facility] ([facility]) [address] [facility], [place], [address], 08/01/2023 00:09:21 07/31/19 24 07/31/2023 COMP. METAB OLIC PANEL (14) potassium 4.7 mmol/ L 3.5-5. 2 Not Available [facility] ([facility]) [address], [place], [address], 08/01/2023 00:09:21 07/31/19 24 07/31/2023 COMP. METAB OLIC PANEL (14) chloride 103 mmol/ L 96-106 Not Available [facility] ([facility]) [address] [facility], [place], [address], 08/01/2023 00:09:21 07/31/19 24 07/31/2023 COMP. METAB OLIC PANEL (14) carbon dioxide, total 24 mmol/ L 20-29 Not Available [facility] ([facility]) [address] [facility], [place], [address], 08/01/2023 00:09:21 07/31/19 24 07/31/2023 COMP. METAB OLIC PANEL (14) calcium 10.7 mg/dL 8.7-10 .2 above high normal Rosalva ified by repea t jayro sis Not Available [facility] ([facility]) [address] [facility], [place], [address], 08/01/2023 00:09:21 07/31/19 24 07/31/2023 COMP. METAB OLIC PANEL (14) protein, total 7.2 g/dL 6.0-8. 5 Not Available [facility] ([facility]) [address], [place], [address], 08/01/2023 00:09:21 07/31/19 24 07/31/2023 COMP. METAB OLIC PANEL (14) albumin 4.4 g/dL 3.8-4. 9 Not Available [facility] ([facility]) [address] [place] [place], [address], 08/01/2023 00:09:21 07/31/19 24 07/31/2023 COMP. METAB OLIC PANEL (14) globulin, total 2.8 g/dL 1.5-4. 5 Not Available [facility] ([facility]) [address], [place], [address], 08/01/2023 00:09:21 07/31/19 24 07/31/2023 COMP. METAB OLIC PANEL (14) A/G ratio 1.6 1.2-2. 2 Not Available [facility] ([facility]) [address] [place] [place], [address], 08/01/2023 00:09:21 07/31/19 24 07/31/2023 COMP. METAB OLIC PANEL (14) bilirubin, total 0.3 mg/dL 0.0-1. 2 Not Available [facility] ([facility]) [address] [place], [address], 08/01/2023 00:09:21 07/31/19 24 07/31/2023 COMP. METAB OLIC PANEL (14) alkaline phosphatase 106 IU/L 44-121 Not Available [facility] ([facility]) [address] [place], [address], 08/01/2023 00:09:21 07/31/19 24 07/31/2023 COMP. METAB OLIC PANEL (14) AST (SGOT) 21 IU/L 0-40 Not Available [facility] ([facility]) [address] [facility] [place], [address], 08/01/2023 00:09:21 07/31/19 24 07/31/2023 COMP. METAB OLIC PANEL (14) ALT (SGPT) 26 IU/L 0-32 Not Available [facility] ([facility]) [address] [facility] [place], [address], 08/01/2023 00:09:21 07/31/19 24 08/01/2023 VITAM IN B12 AND FOLAT E vitamin B12 575 pg/mL 232-12 45 Not Available [facility] ([facility]) [address] [place], [address], 08/01/2023 01:11:22 07/31/19 24 08/01/2023 VITAM IN B12 AND FOLAT E folate (folic acid), serum >20.0 NG/mL >3.0 A serum folat e antonia ntrat ion of less than 3.1 ng/mL is consi dered to repre sent clini charles defic iency . Not Available [facility] ([facility]) [address] [place], [address], 08/01/2023 01:11:22 07/31/19 24 08/01/2023 SJOGR EN'S AB, ANTI- SS-A/ -SS-B sjogren's anti-ss-A <0.2 ai 0.0-0. 9 Not Available [facility] ([facility]) [address] [place], [address], 08/01/2023 12:11:57 07/31/19 24 08/01/2023 SJOGR EN'S AB, ANTI- SS-A/ -SS-B sjogren's anti-ss-B <0.2 ai 0.0-0. 9 Not Available [facility] ([facility]) [address] [facility], [place], [address], 08/01/2023 12:11:57 07/31/19 24 08/01/2023 SEDIM ENTAT ION RATE- WESTE RGREN sedimentatio n rate-westerg luisa 27 mm/HR 0-40 Not Available [facility] ([facility]) [address] [facility], [place], [address], 08/01/2023 01:11:23 07/31/19 24 07/31/2023 HALLE TIN ferritin 61 NG/mL 15-150 Not Available [facility] ([facility]) [address] [facility], [place], [address], 08/01/2023 00:09:23 10/21/19 24 02/03/2023 imagi ng/di agnos tic resul t No observ ation record ed. [email or web address] Not Available 00:42:58 Result Notes None recorded. Problems Name Problem SNOMED Code Status Onset Date Resolution Date Notes Provider Name and Address Organization Details Recorded Time Sleep disorder 61766274 Active 024 DIEGO TALBERT MD [address] [place] [address], [place], [phone] , [facility] 09:54:06 Burning sensation of mouth Active 024 DIEGO TALBERT MD [address] [place] [address], [place], [address] , [facility] - [facility] 4 09:55:44 Problem Notes None recorded. Procedures Surgical History Date Name Laterality Status Provider Name and Address Organization Details Recorded Time laser assisted in situ keratomileusis completed Dayna Lira MA - [facility] 07/31/2023 09:34:13 repair of urinary bladder completed Dayna Lira MA [facility] 07/31/2023 09:34:32 Imaging Results None recorded. Procedure Notes None recorded. Medical Equipment None Reported. Allergies Allergen ID Allergen Name Allergen Category Reaction Reaction Severity Criticality Documentation Date Start Date Code Code System Note Provider Name and Address Organization Details Recorded Time 900569 Bactrim medicatio n Not available Not available Not available 07/31/2023 11772 9 RxNorm Dayna faust MA - [facility] 09:33:20 Medications Name Sig Start Date Stop Date Status Note LastModified by Organization Details LastModified Time buspirone 7.5 mg tablet Take 1 tablet twice a day by oral route. active Not Available Not Available No t Available escitalopram 20 mg tablet Take 1 tablet every day by oral route. active Not Available Not Available No t Available mirtazapine 7.5 mg tablet Take 1 tablet every day by oral route. active Not Available Not Available No t Available Vitals Date Recorded Body height Body mass index (BMI) Body weight Provider Name and Address Organization Details Last Updated DateTime 07/31/2023 170.18 cm 31.3 kg/m2 76605.47 g Dayna Lira [facility] 07/31/2023 09:36:11 Social History None recorded. Functional Status None recorded. Mental Status None recorded. Family History Nothing Reported. Medical History Condition Response Anxiety Y Depression Y Gynecological HistoryNo gynecological history recorded. Obstetrics History GPAL:G 0 P 0 0 0 0 Past Encounters Encounter ID Performer Location Encounter Start Date Encounter Closed Date Diagnosis/Indication Diagnosis SNOMED-CT Code Diagnosis ICD10 Code Diagnosis IMO Codes Diagnosis Note [id number] DIEGO TALBERT MD [facility] [address] [phone] 07/31/2023 09:26:17 07/31/2023 09:59:52 Sleep disorder 40581624 G47.9 Burning se nsation of mouth 6449075463 K14.6 Health Concerns Section Related Observation LastModified by Organization Detai ls LastModified Time None Recorded Concern Status LastModified by Organization Details LastModified Time None Recorded Advance Directives Directive None Recorded Payers Insurance Date Sequence Insurance Name Policy Number Policy Carr Covered Member ID Carr Member ID Guarantor Name 08/02/2023 1 JONATHAN-[place]: [facility] [id number] Amelie Jonas [id number] Amelie Jonas Notes Date Note Type Note Provider Name and Address Organization Details Recorded Time 07/31/2023 text/html I have not slept right in years Difficulty concentrating. 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 Recently saw neurology and was given mirtazapine. She feels a little hung over this morning and is having difficulty focusing and concentrating. She denies any significant history of snoring, nasal obstruction or breathing difficulties. Has never had a sleep study. DIEGO FLEMING MD [address] [place] [address], [phone], [facility] - [facility] 07/31/2023 09:57:42 OBGyn Episode No OBEpisode recorded.
--- OUTSIDE RECORDS SUMMARY | 2025-01-25 15:45 | XMS_ITS | Clinical Summary ---
Author Organization [facility] Address [address] [facility] [address] [place] [phone] Phone Care Team Providers Care [employer] Name Role Phone Tori Kramer PA Unavailable [phone] Kristy Crandall MD Primary Care Provider [phone] Allergies Active Allergy Reactions Criticality Noted Date Comments Sulfamethoxazole-Trimethoprim Itching 2024 Medications diclofenac sodium (VOLTAREN) 75 MG EC tablet Take 1 tablet (75 mg total) by mouth 2 (two) times a day. 60 tablet 1 11/10/2024 Active Encounters Date Type Department Care Team Description 11/10/2024 11:00 AM EDT Office Visit [facility] [address] [place] [id number] Althea Ford MD Biceps tendonitis on left [...] 04/11/2020, 03/14/2020 Adult Td,Tdap Booster 11/14/2024 11/14/2014 RSV VACCINE (1 - 1-dose 75+ series) 2045 ZOSTER VACCINES Completed 03/22/2021, 12/31/2020 HEPATITIS A [...] topic Medical Devices Not on file Insurance [facility] [place] [address] [place] [address] [place] [address] [place] [address] [employer] [facility] Care Teams [employer] Relationship Specialty Start Date End Date Kristy Crandall MD [address] [place] [id number] PCP - General Internal Medicine 10/27/24 Tori Kramer PA [address] [place] [id number] Physician Prop Sawyer 06/22/24 Additional Source Comments The information contained in this document represents components of the legal health record. It is not the complete legal health record.[facility]
== END 2025-01-25 13:11 | disposition home or self-care (01) ==
LOC: HO.HMCFM 12:45
PROVIDERS: PCP Internal Medicine; Visit Provider Nurse Practitioner Family
DX: L50.9 Urticaria, unspecified (principal)

== ENCOUNTER 2025-01-30 15:03 | Outpatient (REF) | payer BC, SELFPAY ==
--- NOTE | ~2025-01-30 | XR_ITS ---
EXAMINATION: XR SHOULDER, RIGHT CLINICAL INFORMATION: M25.511 - Pain in right shoulder COMPARISON: None available. TECHNIQUE: AP external rotation, Grashey, scapular Y, and axillary views of the right shoulder. FINDINGS: Normal bone mineralization. No fracture, dislocation, or suspicious bone lesion. Normal alignment. The glenohumeral joint is normal. The AC joint is normal. There is a neutral lateral acromion. No undersurface spurring. The subacromial space is preserved. Remainder of the soft tissue and bony structures appear normal. XR/XR shoulder RT min 2V IMPRESSION: Normal right shoulder. Electronically signed by: James Andrade MD 01/30/2025 03:41 PM EST
--- OUTSIDE RECORDS SUMMARY | 2025-01-30 18:15 | XMS_ITS | Data Portability ---
Author Organization [place] - [facility], Allergy Address [address] [place] [id number] Care Team Providers Care Health Professor Name Role Phone RogerKYLE JOAQUIN Primary Care Provider Assessment Encounter Date Assessment Date Assessment LastModified [...] (erythrocyt e sedimentati on rate), blood 2023 024 LEROY [facility] (Centralized Electronic Ordering - All Locations), Patient Can Go To The Location Of Their Choice, [id number] 4 00:09:22 sjogren antibody panel (ssa, ssb, ro, la), serum 2023 024 LEROY [facility] (Centralized Electronic Ordering - All Locations), Patient Can Go To The Location Of Their Choice, 4 00:09:22 CBC w/ auto diff 2023 024 LEROY [facility] (Centralized Electronic Ordering - All Locations), Patient Can Go To The Location Of Their Choice, [id number] 4 00:09:20 vitamin B12 + folate, serum or blood 2023 024 LEROY [facility] (Centralized Electronic Ordering - All Locations), Patient Can Go To The Location Of Their Choice, [id number] 4 00:09:21 ferritin, serum or plasma 2023 LEROY [facility] (Centralized Electronic Ordering - All Locations), Patient Can Go To The Location Of Their Choice, [id number] 4 00:09:23 CMP, serum or plasma 2023 024 LEROY [facility] (Centralized Electronic Ordering - All Locations), Patient Can Go To The Location Of Their Choice, [id number] 4 00:09:21 Referral None recorded. Procedures polysomnogr aphy, diagnostic (PROC) 2023 [place] [id number] [facility], [address] [place] [address], [address], 4 14:37:21 Surgeries None recorded. Imaging None recorded. Medication Orders None recorded. Patient TargetsNo targets recorded. Patient InstructionsNo instructions recorded. Reason for Referral None Reported. Results Created Date Observation Date Name Description Value Unit Range Abnormal Flag Note LastModifiedBy Organization Detail LastModifiedTime 07/31/1908/01/2023 CBC WITH DIFFE RENTI AL/PL ATELE T WBC 5.6 x10e3 /uL 3.4-10 .8 Not Available [facility] ([facility]) [address] [place], [address], 08/01/2023 00:09:20 07/31/1908/01/2023 CBC WITH DIFFE RENTI AL/PL ATELE T RBC 4.81 x10e6 /uL 3.77-5 .28 Not Available [facility] ([facility]) [address] [place], [address], 08/01/2023 00:09:20 07/31/1908/01/2023 CBC WITH DIFFE RENTI AL/PL ATELE T hemoglobin 13.8 g/dL 11.1-1 5.9 Not Available [facility] ([facility]) [address] [place], [address], 08/01/2023 00:09:20 07/31/19 24 08/01/2023 CBC WITH DIFFE RENTI AL/PL ATELE T hematocrit 44.9 % 34.0-4 6.6 Not Available [facility] ([facility]) [address] [facility], [place], [address], 08/01/2023 00:09:20 07/31/1908/01/2023 CBC WITH DIFFE RENTI AL/PL ATELE T MCV 93 fL 79-97 Not Available [facility] ([facility]) [address] [facility], [place], [address], 08/01/2023 00:09:20 07/31/1908/01/2023 CBC WITH DIFFE RENTI AL/PL ATELE T MCH 28.7 pg 26.6-3 3.0 Not Available [facility] ([facility]) [address] [facility], [place], [address], 08/01/2023 00:09:20 07/31/1908/01/2023 CBC WITH DIFFE RENTI AL/PL ATELE T MCHC 30.7 g/dL 31.5-3 5.7 below low normal Not Available [facility] ([facility]) [address] [place], [address], 08/01/2023 00:09:20 07/31/1908/01/2023 CBC WITH DIFFE RENTI AL/PL ATELE T RDW 13.1 % 11.7-1 5.4 Not Available [facility] ([facility]) [address] [place], [address], 08/01/2023 00:09:20 07/31/1908/01/2023 CBC WITH DIFFE RENTI AL/PL ATELE T platelets 324 x10e3 /uL 150-45 0 Not Available [facility] ([facility]) [address] [place], [address], 08/01/2023 00:09:20 07/31/19 24 08/01/2023 CBC WITH DIFFE RENTI AL/PL ATELE T neutrophils 60 % not estab. Not Available [facility] ([facility]) [address] [facility], [place], [address], 08/01/2023 00:09:20 07/31/19 24 08/01/2023 CBC WITH DIFFE RENTI AL/PL ATELE T lymphs 30 % not estab. Not Available [facility] ([facility]) [address] [facility], [place], [address], 08/01/2023 00:09:20 07/31/19 24 08/01/2023 CBC WITH DIFFE RENTI AL/PL ATELE T monocytes 7 % not estab. Not Available [facility] ([facility]) [address] [place], [address], 08/01/2023 00:09:20 07/31/19 24 08/01/2023 CBC WITH DIFFE RENTI AL/PL ATELE T eos 2 % not estab. Not Available [facility] ([facility]) [address] [place], [address], 08/01/2023 00:09:20 07/31/19 24 08/01/2023 CBC WITH DIFFE RENTI AL/PL ATELE T basos 1 % not estab. 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 0 Not Available [facility] ([facility]) [address] [facility], [place], [address], 08/01/2023 00:09:20 07/31/19 24 08/01/2023 CBC WITH DIFFE RENTI AL/PL ATELE T lymphs (absolute) 1.6 x10e3 /uL 0.7-3. 1 Not Available [facility] ([facility]) [address] [facility], [place], [address], 08/01/2023 00:09:20 07/31/19 24 08/01/2023 CBC WITH DIFFE RENTI AL/PL ATELE T monocytes(ab solute) 0.4 x10e3 /uL 0.1-0. 9 Not Available [facility] ([facility]) [address] [facility], [place], [address], 08/01/2023 00:09:20 07/31/19 24 08/01/2023 CBC WITH DIFFE RENTI AL/PL ATELE T eos (absolute) 0.1 x10e3 /uL 0.0-0. 4 Not Available [facility] ([facility]) [address] [facility], [place], [address], 08/01/2023 00:09:20 07/31/19 24 08/01/2023 CBC WITH DIFFE RENTI AL/PL ATELE T baso (absolute) 0.1 x10e3 /uL 0.0-0. 2 Not Available [facility] ([facility]) [address] [place], [address], 08/01/2023 00:09:20 07/31/19 24 08/01/2023 CBC WITH DIFFE RENTI AL/PL ATELE T immature granulocytes 0 % not estab. Not Available [facility] ([facility]) [address] [place], [address], 08/01/2023 00:09:20 07/31/19 24 08/01/2023 CBC WITH DIFFE RENTI AL/PL ATELE T immature grans (abs) 0.0 x10e3 /uL 0.0-0. 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 METAB OLIC PANEL (14) glucose 88 mg/dL 70-99 Not Available [facility] ([facility]) [address] [facility], [place], [address], 08/01/2023 00:09:21 07/31/19 24 07/31/2023 COMP. METAB OLIC PANEL (14) BUN 17 mg/dL 6-24 Not Available [facility] ([facility]) [address] [facility], [place], [address], 08/01/2023 00:09:21 07/31/19 24 07/31/2023 COMP. METAB OLIC PANEL (14) creatinine 0.91 mg/dL 0.57-1 .00 Not Available [facility] ([facility]) [address] [facility], [place], [address], 08/01/2023 00:09:21 07/31/19 24 07/31/2023 COMP. METAB OLIC PANEL (14) eGFR 75 mL/mi n/1.7 3 >59 Not Available [facility] ([facility]) [address], [place], [address], 08/01/2023 00:09:21 07/31/19 24 07/31/2023 COMP. METAB OLIC PANEL (14) BUN/creatini ne ratio 19 9-23 Not Available [facility] ([facility]) [address] [facility], [place], [address], 08/01/2023 00:09:21 07/31/19 24 07/31/2023 COMP. METAB OLIC PANEL (14) sodium 142 mmol/ L 134-14 4 Not Available [facility] ([facility]) [address] [facility], [place], [address], 08/01/2023 00:09:21 07/31/19 24 07/31/2023 COMP. METAB OLIC PANEL (14) potassium 4.7 mmol/ L 3.5-5. 2 Not Available [facility] ([facility]) [address], [place], [address], 08/01/2023 00:09:21 07/31/19 24 07/31/2023 COMP. METAB OLIC PANEL (14) chloride 103 mmol/ L 96-106 Not Available [facility] ([facility]) [address] [facility], [place], [address], 08/01/2023 00:09:21 07/31/19 24 07/31/2023 COMP. METAB OLIC PANEL (14) carbon dioxide, total 24 mmol/ L 20-29 Not Available [facility] ([facility]) [address] [facility], [place], [address], 08/01/2023 00:09:21 07/31/19 24 07/31/2023 COMP. METAB OLIC PANEL (14) calcium 10.7 mg/dL 8.7-10 .2 above high normal Rosalva ified by repea t jayro sis Not Available [facility] ([facility]) [address] [facility], [place], [address], 08/01/2023 00:09:21 07/31/19 24 07/31/2023 COMP. METAB OLIC PANEL (14) protein, total 7.2 g/dL 6.0-8. 5 Not Available [facility] ([facility]) [address], [place], [address], 08/01/2023 00:09:21 07/31/19 24 07/31/2023 COMP. METAB OLIC PANEL (14) albumin 4.4 g/dL 3.8-4. 9 Not Available [facility] ([facility]) [address] [place], [address], 08/01/2023 00:09:21 07/31/19 24 07/31/2023 COMP. METAB OLIC PANEL (14) globulin, total 2.8 g/dL 1.5-4. 5 Not Available [facility] ([facility]) [address], [place], [address], 08/01/2023 00:09:21 07/31/19 24 07/31/2023 COMP. METAB OLIC PANEL (14) A/G ratio 1.6 1.2-2. 2 Not Available [facility] ([facility]) [address] [place], [address], 08/01/2023 00:09:21 07/31/19 24 07/31/2023 COMP. METAB OLIC PANEL (14) bilirubin, total 0.3 mg/dL 0.0-1. 2 Not Available [facility] ([facility]) [address] [place], [address], 08/01/2023 00:09:21 07/31/19 24 07/31/2023 COMP. METAB OLIC PANEL (14) alkaline phosphatase 106 IU/L 44-121 Not Available [facility] ([facility]) [address] [place], [address], 08/01/2023 00:09:21 07/31/19 24 07/31/2023 COMP. METAB OLIC PANEL (14) AST (SGOT) 21 IU/L 0-40 Not Available [facility] ([facility]) [address] [place] [place], [address], 08/01/2023 00:09:21 07/31/19 24 07/31/2023 COMP. METAB OLIC PANEL (14) ALT (SGPT) 26 IU/L 0-32 Not Available [facility] ([facility]) [address] [place] [place], [address], 08/01/2023 00:09:21 07/31/19 24 08/01/2023 VITAM IN B12 AND FOLAT E vitamin B12 575 pg/mL 232-12 45 Not Available [facility] ([facility]) [address] [place], [address], 08/01/2023 01:11:22 07/31/19 24 08/01/2023 VITAM IN B12 AND FOLAT E folate (folic acid), serum >20.0 NG/mL >3.0 A serum folat e antonia ntrat ion of less than 3.1 ng/mL is consi dered to repre sent clini charles defic iency . Not Available [facility] ([facility]) [address] [place], [address], 08/01/2023 01:11:22 07/31/19 24 08/01/2023 SJOGR EN'S AB, ANTI- SS-A/ -SS-B sjogren's anti-ss-A <0.2 ai 0.0-0. 9 Not Available [facility] ([facility]) [address] [place], [address], 08/01/2023 12:11:57 07/31/19 24 08/01/2023 SJOGR EN'S AB, ANTI- SS-A/ -SS-B sjogren's anti-ss-B <0.2 ai 0.0-0. 9 Not Available [facility] ([facility]) [address] [facility], [place], [address], 08/01/2023 12:11:57 07/31/19 24 08/01/2023 SEDIM ENTAT ION RATE- WESTE RGREN sedimentatio n rate-westerg luisa 27 mm/HR 0-40 Not Available [facility] ([facility]) [address] [facility], [place], [address], 08/01/2023 01:11:23 07/31/19 24 07/31/2023 HALLE TIN ferritin 61 NG/mL 15-150 Not Available [facility] ([facility]) [address] [facility], [place], [address], 08/01/2023 00:09:23 10/21/19 24 02/03/2023 imagi ng/di agnos tic resul t No observ ation record ed. [email or web address] Not Available 00:42:58 Result Notes None recorded. Problems Name Problem SNOMED Code Status Onset Date Resolution Date Notes Provider Name and Address Organization Details Recorded Time Sleep disorder 38707699 Active 024 DIEGO TALBERT MD [address] [place] [address], [place], [phone] , [facility] - [facility] 09:54:06 Burning sensation of mouth Active 024 DIEGO TALBERT MD [address] [place] [address], [place], [address] , [facility] - [facility] 4 09:55:44 Problem Notes None recorded. Procedures Surgical History Date Name Laterality Status Provider Name and Address Organization Details Recorded Time laser assisted in situ keratomileusis completed Dayna Lira [place] - [facility] 07/31/2023 09:34:13 repair of urinary bladder completed Dayna Lira MA [facility] 07/31/2023 09:34:32 Imaging Results None recorded. Procedure Notes None recorded. Medical Equipment None Reported. Allergies Allergen ID Allergen Name Allergen Category Reaction Reaction Severity Criticality Documentation Date Start Date Code Code System Note Provider Name and Address Organization Details Recorded Time 163934 Bactrim medicatio n Not available Not available Not available 07/31/2023 33332 9 RxNorm Dayna faust [place] - [facility] 09:33:20 Medications Name Sig Start Date [...] Updated DateTime 07/31/2023 170.18 cm 31.3 kg/m2 20666.47 g Dayna Lira [facility] 07/31/2023 09:36:11 Social History None recorded. [...] Note 2187 DIEGO TALBERT MD [facility] [address] [phone] 07/31/2023 09:26:17 07/31/2023 09:59:52 Sleep disorder 03643939 G47.9 Burning se nsation of mouth 6497425404 K14.6 Health Concerns Section Related Observation LastModified by Organization Detai ls LastModified Time None Recorded Concern Status LastModified by Organization Details LastModified Time None Recorded Advance Directives Directive None Recorded Payers Insurance Date Sequence Insurance Name Policy Number Policy Carr Covered Member ID Carr Member ID Guarantor Name 08/02/2023 1 JONATHAN-[place]: [facility] [place] [id number] Amelie Jonas [id number] Amelie Jonas Notes Date Note Type Note Provider Name and Address Organization Details Recorded Time 07/31/2023 text/html I have not slept right in years Difficulty concentrating. 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 Recently saw neurology and was given mirtazapine. She feels a little hung over this morning and is having difficulty focusing and concentrating. She denies any significant history of snoring, nasal obstruction or breathing difficulties. Has never had a sleep study. DIEGO FLEMING MD [address] [place] [address], [phone], [facility] - [facility] 07/31/2023 09:57:42 OBGyn Episode No OBEpisode recorded.
--- OUTSIDE RECORDS SUMMARY | 2025-01-30 18:15 | XMS_ITS | Clinical Summary ---
Author Organization [facility] Address [address] [facility] [address] [place] [phone] Phone Care Team Providers Care Associate Professor Name Role Phone Tori Kramer PA Unavailable [phone] Kristy Crandall MD Primary Care Provider [phone] Allergies Active Allergy Reactions Criticality Noted Date Comments Sulfamethoxazole-Trimethoprim Itching 2024 Medications diclofenac sodium (VOLTAREN) 75 MG EC tablet Take 1 tablet (75 mg total) by mouth 2 (two) times a day. 60 tablet 1 11/10/2024 Active Encounters Date Type Department Care Team Description 11/10/2024 11:00 AM EDT Office Visit [facility] [address] [place] [id number] Althea Ford MD Biceps tendonitis on left [...] topic Medical Devices Not on file Insurance [facility] [place] [address] [place] [address] [place] [address] [place] [address] [employer] [facility] Care Teams Associate Professor Relationship Specialty Start Date End Date Kristy Crandall MD [address] [place] [id number] PCP - General Internal Medicine 10/27/24 Tori Kramer PA [address] [place] [id number] Physician [employer] 06/22/24 Additional Source Comments The information contained in this document represents components of the legal health record. It is not the complete legal health record.[facility]
== END 2025-01-30 15:04 | disposition home or self-care (01) ==
LOC: HO.XRAY 15:03
PROVIDERS: PCP Internal Medicine; Visit Provider Internal Medicine
DX: M25.511 Pain in right shoulder (principal)
CPT/HCPCS: 73030

== ENCOUNTER → 2025-01-30 15:10 | Outpatient (BNV) | payer BC, SELFPAY | PROVIDERS: PCP Internal Medicine; Visit Provider Radiology Diagnostic Radiology | DX: M25.511 Pain in right shoulder (principal) | CPT/HCPCS: 73030 ==

== ENCOUNTER 2025-02-09 10:07 | Outpatient (AMB) | payer BC, SELFPAY ==
--- NOTE | 2025-02-09 10:12 | A.OFFPC_ITS ---
Vital Signs 02/09/25 10:16 Height 5 ft 7 in Weight 198 lb 8 oz BMI 31.1 BP 116/62 Blood Pressure Location Rt brachial Position Sitting Respiration 13 Pulse 78 Pulse Source Pulse Oximeter Temp 97.5 F Temp Source Temporal Artery Scan Pulse Oximetry (%) 97 Oxygen Delivery Method Room Air Intake Visit Reasons: 1-2 weeks fu RASH okay to see KO Intake Note: Amelie presents in the office today for a follow up to a rash. 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: No Is last menstrual period known: No Post menopausal: Yes Patient : No Allergies oxycodone (From Percocet) Allergy (Severe, Verified 02/09/25 10:43) Vomiting sulfamethoxazole (From Bactrim) Allergy (Mild, Verified 02/09/25 10:43) Hives trimethoprim (From Bactrim) Allergy (Mild, Verified 02/09/25 10:43) Hives Medication List - Last Reconciled 02/09/25 by Lorie Pinon, WATERSHED TENDER-BC bupropion HCl XL (Wellbutrin XL) 300 mg PO DAILY buspirone 7.5 mg PO BID CombiPatch 0.05-0.14 mg/24 hr (estradiol-norethindrone acet) 1 patch transdermal 2XW NS epinephrine (EpiPen 2-Nathaniel) 0.3 mg (0.3 mL) IM Q10M PRN hydroxyzine HCl 50 mg PO TID PRN Tobacco use date assessed: 02/09/25 Dental Screening Dental Screen Date: 02/09/25 Did you have a dental visit in the last 12 months?: Yes Did you have a dental problem in the last 6 months where you did not have access to dental care?: No Was dental information given to patient?: Patient has dentist HPI HPI Comments History of Present Illness Details The patient is a 54 year old female with a past medical history of anxiety, depression, seasonal affective disorder, headaches History of Present Illness The patient is a 54 year old female presenting with a follow-up visit for a rash. Urticaria: - The patient presents for a follow-up o n a severe rash - The initial rash evolved into welts an d bumps under the skin. - The welts appeared on her face, eyebro w area, neck, arms, and around her knees, accompanied by itching. - She also experienced lumps under the s kin of her lips that were not red but were palpable. - Associated symptoms included a feeling of overall swelling on the day of her initial visit, but she denies current issues with breathing, swallowing, or swelling in her eyes. - Her symptoms were treated with prednis one, famotidine (Pepcid), hydroxyzine, and Zyrtec, which she completed yesterday. Rash improved 1 week after starting. - The hydroxyzine was particularly effec tive for the itching and she was taking it three times a day until about four days ago, after which she used it as ne eded, with the last dose a day ago. - She has an appointment with Allergy/Im munology for testing on the of the month and was advised to stop antihistamines five days prior. - The patient has obtained an EpiPen as prescribed but has not needed to use. Cough: - The patient reports a dry, itchy cough that is a recurring seasonal issue. - The cough is not associated with a col d or postnasal drip. - She has previously tried benzonatate p jason without relief. - She has used an inhaler in the past bu t has not used it for the current episode. Review of Systems - Skin: Reports intermittent itching, pa rticularly around the knees, arms, and neck. - Oropharynx: Reports occasional lumps u nder the skin of her lips. - Denies difficulty swallowing. - Respiratory: Reports a dry, itchy coug h. - Denies shortness of breath. - Neurological: Reports a tingly sensati on under the skin preceding a rash. Physical Exam General: Well developed, well nourished, in no acute distress. Appears stated age. Head: Normocephalic, atraumatic. Eyes: Pupils are equal, round and reactive to light and accommodation. Conjunctivae are clear. Vision grossly normal. Lungs: Clear to auscultation bilaterally. No rales, rhonchi or wheeze noted. Good air flow in all wagoner. Dry cough noted w/o distress Heart: Regular rate and rhythm. No murmurs, click, rubs or gallops are noted. Skin: greatly improved urticarial rash, during the visit, the rash began to develop on Right lower arm and R elbow, she reports she feeling a tingling like sensation under the skin before the rash erupts. Psych: Mood and affect appropriate. Medical Decision Making The patient is a 54-year-old female presenting for follow-up of a severe urticarial rash. Her symptoms improved significantly with a combination of antihistamines (Zyrtec, hydroxyzine), prednisone and an H2 dorys (famotidine), but she stopped the medications yesterday. During the visit, a the urticarial lesions developed on her R elbow & forarm, which is a hallmark feature of chronic urticaria. Given the presentation and the rapid recurrence of symptoms off medication, there is a high clinical suspicion for mast cell activation syndrome (MCAS), which is an autoimmune disorder. Definitive diagnosis and further management will be deferred to the Allergy/payment specialist, whom the patient is scheduled to see. The plan is to manage her symptoms while preserving the ability for the shop blacksmith to perform skin testing. Famotidine is recommended as it can provide some relief without interfering with diagnostic tests. A prescription for hydr oxyzine will be provided for rescue use, but she is advised to avoid it and other antihistamines for five days prior to her allergy appointment. She has an EpiPen for emergency use. Separately, she has a seasonal dry cough. As steroid use is contraindicated due to the upcoming allergy testing, and benzonatate pearls have been ineffective, an albuterol inhaler will be prescribed to use as needed for the cough. Plan 1. Urticaria - There is concern for mast cell activat ion syndrome given the recurrence of urticaria after stopping medication. - The [facility] the for further evaluation and testing. - It is recommended she stop all antihis tamines, including hydroxyzine and Zyrtec, five days prior to her appointment to ensure accurate test results. - To manage symptoms in the interim, she may continue taking famotidine (Pepcid) as it will not interfere with allergy testing. - A prescription for hydroxyzine will be sent for her to have on hand for severe itching, to be used only if necessary and acknowledging the 5-day washout period. - She should continue to keep her EpiPen with her at all times. 2. Dry Cough - The patient has a seasonal dry cough u nrelated to her rash, for which treatment options are limited due to upcoming allergy testing. - A prescription for an albuterol inhale r will be sent for as-needed use, taking two puffs spaced five minutes apart for cough. - Increased fluid intake is also recomme nded to help with the cough. Patient Instructions - You have an appointment with the aller gy specialist on the of the month for skin testing. - You must stop taking any antihistamine medications, such as hydroxyzine or Zyrtec, at least 5 days before your allergy appointment. - You may continue taking famotidine (Pe pcid) to help control your symptoms, as it will not affect the allergy testing. - I have sent a prescription for hydroxy zine for you to have in case the itching becomes severe, but try to avoid taking it in the 5 days before your appointment. - Always carry your EpiPen with you in c ase of a severe allergic reaction. - For your dry cough, you can use the al buterol inhaler as needed. Take two puffs, waiting about five minutes between each puff. - Drink plenty of fluids to help with th e cough. - Please ensure the cnc specialist s ends a copy of their visit notes to our office. Consent Patient was informed and verbally consented to the use of an ambient scribe for clinic note documentation during this visit. Total time spent caring for the patient today was 30 minutes. This includes time spent before the visit reviewing the chart, time spent during the visit, and time spent after the visit on documentation, reviewing laboratory results, diagnostic imaging, medications, performing a medically necessary evaluation, counseling on diagnoses, care coordination, ordering appropriate tests, ordering appropriate medications, review of tests performed by other providers, reporting test results with the patient, communication with other healthcare providers. [facility] Medical History Obesity, Class I, BMI 30-34.9 Headache Depression Anxiety Family History Mother HTN (hypertension) Hypercholesteremia Diabetes Cardiovascular disease Thyroid disorder Breast cancer Other Substance use Social History (Updated 02/09/25 @ 10:16 by Sabrina Cortez CMA) Housing: House Alcohol intake: current Patient Tobacco Use Status: Former Tobacco user Cigarette Packs Per Day: 0.5 Years Smoked: 3 Packs Per Year: 2 e-Cigarette/Vaping Use: Never Used Second Hand Smoke Exposure: Yes Use of substances other than those prescribed or required for medical reasons: No Patient : No service: Yes Current occupational status: employed 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 Current occupational exposures/hazards: Yes Cognitive needs: No Hearing needs: No Vision needs: Yes (reading glasses ) Questionnaire Thrive Questionnaire Date Thrive assessed: 01/02/25 I am a: Patient What is your living situation today?: I have a steady place to live Within the past 12 months, did the food you bought not last and you didn't have the money to get more?: Never true Within the past 12 months, did you worry whether your food would run out before you got money to buy more?: Never true Do you have trouble paying for medicines?: No Do you have trouble getting transportation to medical appointments?: No Do you have trouble paying your heating and electricity bill?: No Do you have trouble taking care of your child, family member or friend?: No Do you have trouble with day-to-day activities such as bathing, preparing meals, shopping, managing finances, etc.?: No Are you currently unemployed and looking for a job?: No Are you interested in more education?: No Please select the resources that you would like help with: None Currently or been in a relationship where the following occur: No concerns reported THRIVE Score: 0 LUISANA-7 AMB Questionnaire LUISANA-7 Date LUISANA - 7 assessed: 07/20/23 Source: Developed by Drs. Bryan Miller, Elda Soriano, Reuben Salcido and colleagues, with an educational phoebe from [employer]. Physical exam (Primary Care) Vital Signs: Last Vital Signs Temp 97.5 F 02/09/25 10:16 Pulse 78 02/09/25 10:16 Resp 13 02/09/25 10:16 BP 116/62 02/09/25 10:16 Pulse Ox 97 02/09/25 10:16 Oxygen Delivery Method Room Air 02/09/25 10:16 BMI result Body Mass Index 31.1 Tobacco/Smoking Status: Tobacco use Status Tobacco use date assessed 02/09/25 02/09/25 10:19 Patient Tobacco Use Status Former Tobacco user 02/09/25 10:16 e-Cigarette/Vaping Use Never Used 02/09/25 10:16 Thrive Assessment: Date of Thrive Assessment Date Thrive assessed 01/02/25 02/09/25 10:13 Currently or been in a relationship where the following occur: No concerns reported Coding Level of Care Code Est Pt Level 4 (04716) Add On Problem Visit Only Diagnoses Urticaria L50.9 Persistent dry cough R05.3 Assessment & Plan Assessment & Plan (1) Urticaria: Code(s): L50.9 - Urticaria, unspecified Category: Medical (2) Persistent dry cough: Code(s): R05.3 - Chronic cough Category: Medical Plan . Medications: New albuterol sulfate 90 mcg/actuation 2 puffs inhalation Q4-6H PRN 8.5 grams 0RF shortness of breath or wheezing 30 days Refilled hydroxyzine HCl 50 mg PO TID PRN 30 tabs 0RF itching
[2025-02-09 10:16] VITALS: BP 116/62; PULSE 78; RESP 13; TEMP 36.4; O2SAT 97; BMI 31.1
== END 2025-02-09 10:40 | disposition home or self-care (01) ==
LOC: HO.HMCFM 10:08
PROVIDERS: PCP Internal Medicine; Visit Provider Nurse Practitioner Family
DX: L50.9 Urticaria, unspecified (principal); R05.3 Chronic cough